=== PATIENT | male | born 1950 | race Asian ===

== ENCOUNTER 2016-10-18 12:25 | Inpatient (IN) | payer MEDICAID ==
[~2016-10-18] VITALS: Ht 167.6 cm; Wt 54.6 kg
[~2016-10-18 12:25] MED LIST: 0.9% SODIUM CHLORIDE 10 ML VIAL IVP ONE; FentaNYL CITRATE-PF 250 MCG/5 ML VIAL IVP ONE; GLYCOPYRROLATE 0.2 MG/ML VIAL IM ONE; HYDROmorphone 2 MG/ML SYRINGE IVP ONE; LIDOCAINE HCL/PF 2% 5 ML VIAL INJ ONE; MIDAZOLAM HCL 2 MG/2 ML VIAL IVP ONE; NEOSTIGMINE METHYLSULFATE 1 MG/ML 10 ML VIAL IVP ONE; PHENYLEPHRINE HCL 10 MG/ML VIAL IVP ONE; PROPOFOL 1% 20 ML VIAL IVP ONE; ROCURONIUM BROMIDE 10 MG/ML 5 ML VIAL IVP ONE; SUCCINYLCHOLINE CHLORIDE 20 MG/ML 10 ML VIAL IVP ONE
[2016-10-18] MEDS ORDERED: SIME125C PO (12:38)
[2016-10-18 12:41] LABS: GLUCOSE,POINT OF CARE 105 MG/DL (70-110)
[2016-10-18] MEDS ORDERED: ACETAMINOPHEN 1000 MG/ISO-OSM 100 ML IV ONE (13:00)
[2016-10-18] MEDS ORDERED: BARIUM SULFATE 0.1% SUSPENSION 450 ML BOTTLE PO ONE (13:00)
[2016-10-18] MEDS ORDERED: SODIUM CHLORIDE 0.9% 1,000 ML IV ONE ×3 (13:00→14:15)
[2016-10-18] MEDS ORDERED: ONDANSETRON HCL 4 MG/2 ML VIAL IVP ONE (13:00)
[2016-10-18 13:17] LABS: HEMATOCRIT 36.2 % (41-53); MEAN CORPUSCULAR HEMOGLOBIN 27.1 pg (26.0-34.0); MEAN CORPUSCULAR HGB CONC 33.2 G/dL (31.0-37.0); MEAN CORPUSCULAR VOLUME 82 fL (80-100); RED BLOOD CELL COUNT(AUTO) 4.43 MIL/uL (4.50-5.90); WHITE BLOOD COUNT (AUTO) 18.4 K/uL (4.5-11.0)
[2016-10-18 13:21] LABS: INR 1.3 (0.9-1.1); PROTHROMBIN TIME 13.2 SEC (9.4-11.6)
[2016-10-18 13:24] LABS: PLATELET COUNT (AUTO) 819 K/uL (150-450)
[2016-10-18 13:26] LABS: ANION GAP 12 mmol/L (8-16); CALCIUM, TOTAL 8.6 mg/dL (8.8-10.5); CARBON DIOXIDE 25 mmol/L (22-29); CHLORIDE 100 mmol/L (98-107); CREATININE 1.28 mg/dL (0.60-1.30); GLOMERULAR FILTR. RATE CALC 57 mL/min (>60); POTASSIUM 4.1 mmol/L (3.5-5.1); SODIUM SERUM 137 mmol/L (136-145); UREA NITROGEN, BLOOD 23 mg/dL (7-18)
[2016-10-18 13:31] LABS: ALANINE AMINOTRANSFERASE 47 U/L (12-78); ALBUMIN 2.8 g/dL (3.4-5.0); ASPARTATE AMINOTRANSFERASE 18 U/L (15-37); BAND NEUTROPHILS % (MANUAL) 26 % (1-5); BILIRUBIN,TOTAL 1.9 mg/dL (0.1-1.0); LYMPHOCYTES % (MANUAL) 1 % (22-44); TOTAL CELLS COUNTED 100; TOTAL PROTEIN, SERUM 7.6 g/dL (6.4-8.2)
[2016-10-18 13:44] LABS: APPEARANCE,URINE CLOUDY (CLEAR); GLUCOSE, URINE (UA) NEGATIVE (NEGATIVE); KETONES,URINE NEGATIVE (NEGATIVE); LEUKOCYTE ESTERASE ,URINE SMALL (NEGATIVE); OCCULT BLOOD,URINE TRACE (NEGATIVE); PH,URINE 5.5 (5.0-8.0); PROTEIN,URINE SEE CONFIRM (NEGATIVE)
[2016-10-18] MEDS ORDERED: PIPERACILLIN/TAZO 3.375 GM/D5W 50 ML IV ONE (13:45)
[2016-10-18] MEDS ORDERED: MetroNIDAZOLE 500 MG/NACL 100 ML IV ONE (13:45)
[2016-10-18 13:46] LABS: ADD UA MICROSCOPIC YES
[2016-10-18 13:50] LABS: SULFOSALICYLIC ACID,URINE 1+ (Negative)
[2016-10-18 13:50] LABS: LACTIC ACID 2.8 mmol/L (0.4-2.0)
[2016-10-18 13:51] LABS: RBC,URINE 0-2 /HPF (0-2); SQUAMOUS EPITHELIAL CELL,UR Few /LPF (None Seen)
[2016-10-18] MEDS ORDERED: SODIUM CHLORIDE 0.9% 100 ML ONE (13:56)
[2016-10-18] MEDS ORDERED: IOVERSOL 350 MG/ML 100 ML VIAL ONE (13:56)
[2016-10-18] MEDS ORDERED: MORPHINE SULFATE 4 MG/ML SYRINGE IVP PRN (14:15)
[2016-10-18] MEDS ORDERED: ONDANSETRON HCL 4 MG/2 ML VIAL IVP PRN ×2 (14:15→15:15)
[2016-10-18 15:05] LABS: REFLEX LACTIC ACID? YES YES
[2016-10-18] MEDS ORDERED: HEPARIN SODIUM 1000 UNITS/NS 500 ML ONE (15:10)
[2016-10-18] MEDS ORDERED: BISACODYL 10 MG RECTAL RECTAL SUPPOSITORY PR PRN (15:15)
[2016-10-18] MEDS ORDERED: ACETAMINOPHEN 325 MG TABLET PO PRN (15:15)
[2016-10-18] MEDS ORDERED: ALBUTEROL SULFATE 2.5 MG/0.5 ML NEB SOLUTION NEB PRN (15:15)
[2016-10-18 15:30] VITALS: BP 136/85
[2016-10-18] MEDS ORDERED: PIPERACILLIN/TAZO 3.375 GM/D5W 50 ML IV SCH (16:00)
[2016-10-18 16:28] LABS: ABG A-A DIFF O2 351.9 mmHg (10-20.0); ABG BASE EXCESS -6.8 mmol/L (-2.0-3.0); ABG HCO3 19.4 mmol/L (22.0-26.0); ABG OXYHEMOGLOBIN 98.4 % (94.0-100.0); ABG PCO2 36 mmHg (35-45); ABG PH 7.338 (7.35-7.450)
[2016-10-18] MEDS: SODIUM CHLORIDE 0.9% 1,000 ML IV SCH (16:47)
[2016-10-18 17:19] LABS: APPEARANCE,URINE CLEAR (CLEAR); GLUCOSE, URINE (UA) NEGATIVE (NEGATIVE); KETONES,URINE NEGATIVE (NEGATIVE); LEUKOCYTE ESTERASE ,URINE NEGATIVE (NEGATIVE); OCCULT BLOOD,URINE TRACE (NEGATIVE); PH,URINE 5.5 (5.0-8.0); PROTEIN,URINE NEGATIVE (NEGATIVE)
[2016-10-18 17:43] LABS: ADD UA MICROSCOPIC YES
[2016-10-18 17:45] VITALS: BP 127/73
[2016-10-18 17:46] LABS: SQUAMOUS EPITHELIAL CELL,UR Rare /LPF (None Seen)
[2016-10-18 17:55] VITALS: BP 108/59
[2016-10-18] MEDS ORDERED: NALOXONE HCL 0.4 MG/ML VIAL IVP PRN (18:15)
[2016-10-18] MEDS ORDERED: HYDROmorphone HCL 50 MG/NS/PF 100 ML IV PRN (18:15)
[2016-10-18 19:31] LABS: HEMATOCRIT 30.7 % (41-53); HEMOGLOBIN 10.1 g/dL (13.5-17.5); MEAN CORPUSCULAR HEMOGLOBIN 26.8 pg (26.0-34.0); MEAN CORPUSCULAR HGB CONC 32.7 G/dL (31.0-37.0); MEAN CORPUSCULAR VOLUME 82 fL (80-100); PLATELET COUNT (AUTO) 700 K/uL (150-450); RED BLOOD CELL COUNT(AUTO) 3.75 MIL/uL (4.50-5.90); RED CELL DISTRIBUTION WIDTH 16.6 % (11.5-14.5); WHITE BLOOD COUNT (AUTO) 3.6 K/uL (4.5-11.0)
[2016-10-18 19:39] LABS: ANION GAP 9 mmol/L (8-16); CALCIUM, TOTAL 6.6 mg/dL (8.8-10.5); CARBON DIOXIDE 22 mmol/L (22-29); CHLORIDE 107 mmol/L (98-107); CREATININE 0.94 mg/dL (0.60-1.30); GLOMERULAR FILTR. RATE CALC > 60 mL/min (>60); POTASSIUM 3.6 mmol/L (3.5-5.1); SODIUM SERUM 138 mmol/L (136-145); UREA NITROGEN, BLOOD 20 mg/dL (7-18)
[2016-10-18 19:44] LABS: ALANINE AMINOTRANSFERASE 34 U/L (12-78); ALBUMIN 2.1 g/dL (3.4-5.0); ASPARTATE AMINOTRANSFERASE 24 U/L (15-37); BILIRUBIN,TOTAL 1.8 mg/dL (0.1-1.0); TOTAL PROTEIN, SERUM 5.4 g/dL (6.4-8.2)
[2016-10-18] MEDS ORDERED: CALCIUM GLUCONATE 100 MG/ML 10 ML IVP ONE (19:45)
[2016-10-18] MEDS ORDERED: FUROSEMIDE 40 MG/4 ML VIAL ONE (19:47)
[2016-10-18 19:50] LABS: INR 1.4 (0.9-1.1); PROTHROMBIN TIME 14.5 SEC (9.4-11.6)
[2016-10-18] MEDS ORDERED: FUROSEMIDE 20 MG/2 ML VIAL IVP STA (19:52)
[2016-10-18 19:55] LABS: ABG A-A DIFF O2 193.7 mmHg (10-20.0); ABG BASE EXCESS -9.5 mmol/L (-2.0-3.0); ABG HCO3 16.8 mmol/L (22.0-26.0); ABG OXYHEMOGLOBIN 78.8 % (94.0-100.0); ABG PCO2 46 mmHg (35-45); ABG PH 7.219 (7.35-7.450); ALLEN TEST, BLOOD GAS POS; TEMPERATURE, FAHRENHEIT, BG 98.8 FAHREN (96.0-98.6)
[2016-10-18] MEDS: PIPERACILLIN/TAZO 3.375 GM/D5W 50 ML IV SCH (20:00)
[2016-10-18] MEDS ORDERED: MAGNESIUM SULFATE 4 GM/WATER 100 ML IV ONE (20:00)
[2016-10-18] MEDS ORDERED: SODIUM BICARBONATE [ADULT] 8.4% 50 MEQ/50 ML SYRINGE IVP ONE ×4 (20:00→20:22)
[2016-10-18] MEDS ORDERED: RINGERS SOLUTION,LACTATED 1,000 ML IV ONE (20:10)
[2016-10-18] MEDS ORDERED: 0.9% SODIUM CHLORIDE 5 ML NEB SOLUTION NEB ONE (20:50)
[2016-10-18] MEDS ORDERED: ALBUTEROL SULFATE 2.5 MG/0.5 ML NEB SOLUTION NEB ONE (20:50)
[2016-10-18] MEDS: PHYTONADIONE 10 MG in SODIUM CHLORIDE 0.9% 50 ML IV SCH (20:54)
[2016-10-18 20:58] LABS: BAND NEUTROPHILS % (MANUAL) 45 % (1-5); LYMPHOCYTES % (MANUAL) 23 % (22-44); METAMYELOCYTES % 2 % (0-0); TOTAL CELLS COUNTED 100
[2016-10-18] MEDS: PANTOPRAZOLE SODIUM 40 MG/VIAL IVP SCH (21:00)
[2016-10-18] MEDS ORDERED: 0.9% SODIUM CHLORIDE 10 ML SYRINGE IVP ONE (21:00)
[2016-10-18 21:09] LABS: ABG A-A DIFF O2 610.5 mmHg (10-20.0); ABG BASE EXCESS -2.8 mmol/L (-2.0-3.0); ABG HCO3 21.6 mmol/L (22.0-26.0); ABG OXYHEMOGLOBIN 82.1 % (94.0-100.0); ABG PCO2 51 mmHg (35-45); TEMPERATURE, FAHRENHEIT, BG 98.6 FAHREN (96.0-98.6)
[2016-10-18 21:10] LABS: ALLEN TEST, BLOOD GAS POS
[2016-10-18] MEDS ORDERED: PROPOFOL 1000 MG/ISO-OSM 100 ML IV ONE (21:21)
[2016-10-18 23:07] LABS: ABG A-A DIFF O2 601.4 mmHg (10-20.0); ABG BASE EXCESS -4.8 mmol/L (-2.0-3.0); ABG HCO3 20.7 mmol/L (22.0-26.0); ABG OXYHEMOGLOBIN 93.1 % (94.0-100.0); ABG PCO2 41 mmHg (35-45); ABG PH 7.329 (7.35-7.450); TEMPERATURE, FAHRENHEIT, BG 97.7 FAHREN (96.0-98.6)
[2016-10-18 23:08] LABS: ALLEN TEST, BLOOD GAS POS
[2016-10-19] VITALS (12 sets, daily range): BP systolic 61–122; BP diastolic 46–72
[2016-10-19] MEDS: PIPERACILLIN/TAZO 3.375 GM/D5W 50 ML IV SCH ×4 (04:54→20:08)
[2016-10-19] MEDS: SODIUM CHLORIDE 0.9% 1,000 ML IV SCH ×2 (04:55→14:33)
[2016-10-19] MEDS ORDERED: SODIUM CHLORIDE 0.9% 250 ML IV ONE (05:02)
[2016-10-19 05:41] LABS: HEMATOCRIT 33.9 % (41-53); HEMOGLOBIN 10.6 g/dL (13.5-17.5); MEAN CORPUSCULAR HEMOGLOBIN 26.1 pg (26.0-34.0); MEAN CORPUSCULAR HGB CONC 31.4 G/dL (31.0-37.0); MEAN CORPUSCULAR VOLUME 83 fL (80-100); PLATELET COUNT (AUTO) 562 K/uL (150-450); RED BLOOD CELL COUNT(AUTO) 4.07 MIL/uL (4.50-5.90); RED CELL DISTRIBUTION WIDTH 15.7 % (11.5-14.5); WHITE BLOOD COUNT (AUTO) 6.9 K/uL (4.5-11.0)
[2016-10-19 05:46] LABS: INR 1.4 (0.9-1.1); PROTHROMBIN TIME 14.3 SEC (9.4-11.6)
[2016-10-19 05:55] LABS: ALANINE AMINOTRANSFERASE 33 U/L (12-78); ANION GAP 8 mmol/L (8-16); ASPARTATE AMINOTRANSFERASE 23 U/L (15-37); BILIRUBIN,TOTAL 1.2 mg/dL (0.1-1.0); CALCIUM, TOTAL 7.4 mg/dL (8.8-10.5); CARBON DIOXIDE 28 mmol/L (22-29); CHLORIDE 105 mmol/L (98-107); CREATININE 1.17 mg/dL (0.60-1.30); GLOMERULAR FILTR. RATE CALC > 60 mL/min (>60); POTASSIUM 3.5 mmol/L (3.5-5.1); SODIUM SERUM 141 mmol/L (136-145); TOTAL PROTEIN, SERUM 5.8 g/dL (6.4-8.2); UREA NITROGEN, BLOOD 21 mg/dL (7-18)
[2016-10-19 07:43] LABS: BAND NEUTROPHILS % (MANUAL) 59 % (1-5); LYMPHOCYTES % (MANUAL) 17 % (22-44); RBC MORPHOLOGY COMMENT NORMAL RBC; TOTAL CELLS COUNTED 100
[2016-10-19] MEDS: PANTOPRAZOLE SODIUM 40 MG/VIAL IVP SCH ×2 (08:21→21:21)
[2016-10-19 08:25] LABS: ABG A-A DIFF O2 588.5 mmHg (10-20.0); ABG BASE EXCESS -0.1 mmol/L (-2.0-3.0); ABG HCO3 24.3 mmol/L (22.0-26.0); ABG OXYHEMOGLOBIN 95.4 % (94.0-100.0); ABG PCO2 43 mmHg (35-45); ABG PH 7.381 (7.35-7.450); TEMPERATURE, FAHRENHEIT, BG 98.1 FAHREN (96.0-98.6)
[2016-10-19] MEDS ORDERED: FUROSEMIDE 20 MG/2 ML VIAL IVP ONE ×2 (08:30→18:15)
[2016-10-19] MEDS ORDERED: SODIUM CHLORIDE 0.9% 100 ML ONE (09:59)
[2016-10-19] MEDS: ACETAMINOPHEN 650 MG/20.3 ML SOLUTION UDCUP NG PRN ×2 (11:36→20:09)
[2016-10-19] MEDS ORDERED: ALBUMIN HUMAN 25%-12.5GM/50ML 100 ML IV ONE (19:00)
[2016-10-19] MEDS ORDERED: ALBUMIN HUMAN 25%-25GM/100ML 100 ML IV ONE (19:00)
[2016-10-19 19:19] LABS: ABG BASE EXCESS -1.1 mmol/L (-2.0-3.0); ABG HCO3 24.1 mmol/L (22.0-26.0); ABG OXYHEMOGLOBIN 98.3 % (94.0-100.0); ABG PCO2 32 mmHg (35-45); ABG PH 7.467 (7.35-7.450); ALLEN TEST, BLOOD GAS POS
[2016-10-19 19:20] LABS: INSIPIRATORY PRESSURE, BG 32 cm H2O
[2016-10-19] MEDS ORDERED: PHENYLEPHRINE 200 MG/D5%-WATER 250 ML IV PRN (19:42)
[2016-10-19 20:54] LABS: CREATINE KINASE, TOTAL 69 U/L (39-308)
[2016-10-19] MEDS ORDERED: FUROSEMIDE 20 MG/2 ML VIAL IVP SCH (21:00)
[2016-10-19] MEDS: PHYTONADIONE 10 MG in SODIUM CHLORIDE 0.9% 50 ML IV SCH (21:18)
[2016-10-19] MEDS ORDERED: 0.9% SODIUM CHLORIDE 10 ML SYRINGE IVP PRN (21:45)
[2016-10-20] VITALS (14 sets, daily range): BP systolic 108–154; BP diastolic 50–79
[2016-10-20] MEDS ORDERED: SODIUM CHLORIDE 0.9% 250 ML IV ONE ×2 (01:54→22:42)
[2016-10-20] MEDS: RINGERS SOLUTION,LACTATED 1,000 ML IV SCH ×3 (02:53→21:16)
[2016-10-20] MEDS: PIPERACILLIN/TAZO 3.375 GM/D5W 50 ML IV SCH ×2 (02:54→08:00)
[2016-10-20] MEDS: ALBUMIN HUMAN 25%-12.5GM/50ML 50 ML IV SCH ×3 (03:00→19:35)
[2016-10-20 07:38] LABS: BASOPHILS % (AUTO) 0.2 % (0.0-2.0); EOSINOPHILS % (AUTO) 0.1 % (1.0-6.0); HEMATOCRIT 32.7 % (41-53); HEMOGLOBIN 10.7 g/dL (13.5-17.5); LYMPHOCYTES # (AUTO) 0.6 K/uL (1.0-4.8); MEAN CORPUSCULAR HGB CONC 32.7 G/dL (31.0-37.0); MEAN CORPUSCULAR VOLUME 83 fL (80-100); MONOCYTES # (AUTO) 5.8 K/uL (0.1-1.0); MONOCYTES % (AUTO) 27.6 % (2.0-9.0); NEUTROPHILS # (AUTO) 14.5 K/uL (1.8-7.7); NEUTROPHILS % (AUTO) 69.1 % (40.0-70.0); PLATELET COUNT (AUTO) 585 K/uL (150-450); RED BLOOD CELL COUNT(AUTO) 3.97 MIL/uL (4.50-5.90); RED CELL DISTRIBUTION WIDTH 16.1 % (11.5-14.5); WHITE BLOOD COUNT (AUTO) 21.1 K/uL (4.5-11.0)
[2016-10-20] MEDS: PANTOPRAZOLE SODIUM 40 MG/VIAL IVP SCH ×2 (08:00→20:48)
[2016-10-20 08:17] LABS: ALANINE AMINOTRANSFERASE 31 U/L (12-78); ALBUMIN 2.2 g/dL (3.4-5.0); ANION GAP 13 mmol/L (8-16); ASPARTATE AMINOTRANSFERASE 36 U/L (15-37); BILIRUBIN,TOTAL 2.1 mg/dL (0.1-1.0); CALCIUM, TOTAL 7.9 mg/dL (8.8-10.5); CARBON DIOXIDE 25 mmol/L (22-29); CHLORIDE 104 mmol/L (98-107); CREATINE KINASE MB 4.6 ng/mL (0-5); CREATINE KINASE, TOTAL 247 U/L (39-308); CREATININE 2.01 mg/dL (0.60-1.30); GLOMERULAR FILTR. RATE CALC 34 mL/min (>60); PHOSPHORUS 3.3 mg/dL (2.5-4.9); SODIUM SERUM 142 mmol/L (136-145); THYROID STIMULATING HORMONE 4.47 uIU/mL (0.36-3.74); TOTAL PROTEIN, SERUM 6.2 g/dL (6.4-8.2); UREA NITROGEN, BLOOD 33 mg/dL (7-18)
[2016-10-20 08:25] LABS: POTASSIUM 2.9 mmol/L (3.5-5.1)
[2016-10-20 08:32] LABS: B-TYPE NATRIURETIC PEPTIDE 1520 pg/mL (0-100)
[2016-10-20] MEDS ORDERED: POTASSIUM CHLORIDE 20 MEQ ER TABLET PO PRN (08:45)
[2016-10-20] MEDS: POTASSIUM CHL 10 MEQ/WATER 50 ML IV PRN ×4 (09:19→13:44)
[2016-10-20 10:12] LABS: ABG A-A DIFF O2 210.7 mmHg (10-20.0); ABG BASE EXCESS -1.6 mmol/L (-2.0-3.0); ABG HCO3 24.1 mmol/L (22.0-26.0); ABG OXYHEMOGLOBIN 98.9 % (94.0-100.0); ABG PCO2 24 mmHg (35-45); ABG PH 7.548 (7.35-7.450)
[2016-10-20 15:15] LABS: CREATINE KINASE MB 3.7 ng/mL (0-5); CREATINE KINASE, TOTAL 249 U/L (39-308)
[2016-10-20] MEDS: PIPERACILLIN SODIUM/TAZOBACTAM 2.25 GM in DEXTROSE 5%-WATER 50 ML IV SCH ×2 (15:39→22:49)
[2016-10-20] MEDS: ACETAMINOPHEN 650 MG/20.3 ML SOLUTION UDCUP NG PRN (15:49)
[2016-10-20] MEDS: PHYTONADIONE 10 MG in SODIUM CHLORIDE 0.9% 50 ML IV SCH (20:45)
[2016-10-21] VITALS (12 sets, daily range): BP systolic 116–170; BP diastolic 67–94
[2016-10-21] MEDS: MORPHINE SULFATE 2 MG/ML SYRINGE IVP PRN ×3 (02:19→11:57)
[2016-10-21] MEDS: ALBUMIN HUMAN 25%-12.5GM/50ML 50 ML IV SCH ×3 (03:42→17:46)
[2016-10-21] MEDS: PIPERACILLIN SODIUM/TAZOBACTAM 2.25 GM in DEXTROSE 5%-WATER 50 ML IV SCH ×4 (05:43→21:49)
[2016-10-21 08:22] LABS: HEMATOCRIT 29.3 % (41-53); HEMOGLOBIN 9.7 g/dL (13.5-17.5); MEAN CORPUSCULAR HEMOGLOBIN 27.2 pg (26.0-34.0); MEAN CORPUSCULAR VOLUME 83 fL (80-100); PLATELET COUNT (AUTO) 435 K/uL (150-450); RED BLOOD CELL COUNT(AUTO) 3.55 MIL/uL (4.50-5.90); RED CELL DISTRIBUTION WIDTH 16.3 % (11.5-14.5)
[2016-10-21] MEDS: PANTOPRAZOLE SODIUM 40 MG/VIAL IVP SCH ×2 (08:29→21:08)
[2016-10-21] MEDS: RINGERS SOLUTION,LACTATED 1,000 ML IV SCH ×2 (08:29→17:42)
[2016-10-21 08:34] LABS: CALCIUM, TOTAL 8.1 mg/dL (8.8-10.5); CREATININE 1.76 mg/dL (0.60-1.30); POTASSIUM 3.8 mmol/L (3.5-5.1)
[2016-10-21 08:41] LABS: BAND NEUTROPHILS % (MANUAL) 35 % (1-5); LYMPHOCYTES % (MANUAL) 12 % (22-44); RBC MORPHOLOGY COMMENT NORMAL RBC MORPH; TOTAL CELLS COUNTED 100
[2016-10-21] MEDS ORDERED: MORPHINE SULFATE 10 MG/ML SYRINGE IVP ONE (13:15)
[2016-10-21] MEDS: MORPHINE SULFATE 4 MG/ML SYRINGE IVP PRN ×2 (19:16→21:49)
[2016-10-22] VITALS (15 sets, daily range): BP systolic 62–156; BP diastolic 43–98
[2016-10-22] MEDS ORDERED: ATROPINE SULFATE 0.1 MG/ML 10 ML SYRINGE IVP ONE
[2016-10-22] MEDS ORDERED: SUCCINYLCHOLINE CHLORIDE 20 MG/ML 10 ML VIAL IVP ONE
[2016-10-22] MEDS: MORPHINE SULFATE 4 MG/ML SYRINGE IVP PRN ×6 (01:03→22:30)
[2016-10-22] MEDS: ALBUMIN HUMAN 25%-12.5GM/50ML 50 ML IV SCH ×3 (03:00→19:49)
[2016-10-22] MEDS: PIPERACILLIN SODIUM/TAZOBACTAM 2.25 GM in DEXTROSE 5%-WATER 50 ML IV SCH ×2 (03:53→10:24)
[2016-10-22] MEDS: RINGERS SOLUTION,LACTATED 1,000 ML IV SCH ×2 (03:53→12:14)
[2016-10-22] MEDS ORDERED: SODIUM CHLORIDE 0.9% 250 ML IV ONE (05:08)
[2016-10-22 06:43] LABS: EOSINOPHILS % (AUTO) 0.1 % (1.0-6.0); HEMATOCRIT 31.8 % (41-53); HEMOGLOBIN 10.1 g/dL (13.5-17.5); LYMPHOCYTES # (AUTO) 0.8 K/uL (1.0-4.8); LYMPHOCYTES % (AUTO) 3.8 % (22.0-44.0); MEAN CORPUSCULAR HEMOGLOBIN 26.8 pg (26.0-34.0); MEAN CORPUSCULAR HGB CONC 31.8 G/dL (31.0-37.0); MEAN CORPUSCULAR VOLUME 84 fL (80-100); MONOCYTES # (AUTO) 1.2 K/uL (0.1-1.0); MONOCYTES % (AUTO) 5.8 % (2.0-9.0); NEUTROPHILS # (AUTO) 18.6 K/uL (1.8-7.7); PLATELET COUNT (AUTO) 446 K/uL (150-450); RED BLOOD CELL COUNT(AUTO) 3.79 MIL/uL (4.50-5.90); RED CELL DISTRIBUTION WIDTH 16.7 % (11.5-14.5); WHITE BLOOD COUNT (AUTO) 20.6 K/uL (4.5-11.0)
[2016-10-22 06:52] LABS: CALCIUM, TOTAL 8.4 mg/dL (8.8-10.5); CREATININE 1.33 mg/dL (0.60-1.30); POTASSIUM 3.2 mmol/L (3.5-5.1)
[2016-10-22 07:01] LABS: NEUTROPHILS % (AUTO) 90.3 % (40.0-70.0)
[2016-10-22] MEDS: PANTOPRAZOLE SODIUM 40 MG/VIAL IVP SCH ×2 (08:33→21:26)
[2016-10-22] MEDS: POTASSIUM CHL 10 MEQ/WATER 50 ML IV PRN ×5 (08:34→22:54)
[2016-10-22 10:36] LABS: INR 1.1 (0.9-1.1); PROTHROMBIN TIME 11.3 SEC (9.4-11.6)
[2016-10-22 10:42] LABS: BAND NEUTROPHILS % (MANUAL) 29 % (1-5); LYMPHOCYTES % (MANUAL) 11 % (22-44); RBC MORPHOLOGY COMMENT NORMAL RBC MORPH; TOTAL CELLS COUNTED 100
[2016-10-22] MEDS ORDERED: VANCOMYCIN HCL 500 MG in DEXTROSE 5%-WATER 100 ML IV ONE (12:00)
[2016-10-22] MEDS ORDERED: 0.9% SODIUM CHLORIDE 5 ML NEB SOLUTION NEB ONE (13:45)
[2016-10-22 14:11] LABS: GLUCOSE,POINT OF CARE 106 MG/DL (70-110)
[2016-10-22 15:01] LABS: ABG A-A DIFF O2 601.9 mmHg (10-20.0); ABG BASE EXCESS -1.5 mmol/L (-2.0-3.0); ABG HCO3 23.5 mmol/L (22.0-26.0); ABG OXYHEMOGLOBIN 94.6 % (94.0-100.0); ABG PCO2 34 mmHg (35-45); ABG PH 7.436 (7.35-7.450); TEMPERATURE, FAHRENHEIT, BG 98.5 FAHREN (96.0-98.6)
[2016-10-22 15:03] LABS: ALLEN TEST, BLOOD GAS Positive
[2016-10-22] MEDS ORDERED: *CLINICAL-TOTAL PARENTERAL NUTRITION DOSING CLINICAL ONE ×2 (17:00)
[2016-10-22] MEDS: PIPERACILLIN/TAZO 3.375 GM/D5W 50 ML IV SCH ×2 (17:12→21:26)
[2016-10-22] MEDS: VANCOMYCIN HCL 750 MG in DEXTROSE 5%-WATER 150 ML IV SCH (17:41)
[2016-10-22] MEDS ORDERED: RAPID SEQUENCE KIT [RSI] 1 EACH KIT ONE ×2 (18:11)
[2016-10-22] MEDS ORDERED: NITROGLYCERIN 0.4 MG SUBLINGUAL TABLET #25 SL ONE (18:18)
[2016-10-22] MEDS ORDERED: NITROGLYCERIN 0.6 MG SUBLINGUAL TABLET #100 SL PRN ×2 (18:30)
[2016-10-22] MEDS ORDERED: FUROSEMIDE 40 MG/4 ML VIAL IVP ONE (18:30)
[2016-10-22] MEDS ORDERED: NITROGLYCERIN 0.4 MG SUBLINGUAL TABLET #25 SL PRN ×2 (18:30→19:00)
[2016-10-22 18:36] LABS: ABG A-A DIFF O2 608.1 mmHg (10-20.0); ABG BASE EXCESS -4.2 mmol/L (-2.0-3.0); ABG HCO3 20.9 mmol/L (22.0-26.0); ABG OXYHEMOGLOBIN 86.4 % (94.0-100.0); ABG PCO2 44 mmHg (35-45); ABG PH 7.319 (7.35-7.450); TEMPERATURE, FAHRENHEIT, BG 99.3 FAHREN (96.0-98.6)
[2016-10-22] MEDS ORDERED: SUCCINYLCHOLINE CHLORIDE 20 MG/ML 10 ML VIAL ONE (18:45)
[2016-10-22] MEDS ORDERED: MIDAZOLAM HCL 5 MG/ML VIAL ONE (18:45)
[2016-10-22] MEDS ORDERED: PROPOFOL 1000 MG/ISO-OSM 100 ML IV ONE (18:56)
[2016-10-22] MEDS ORDERED: MIDAZOLAM HCL 2 MG/2 ML VIAL IVP ONE (19:00)
[2016-10-22 19:17] LABS: ALLEN TEST, BLOOD GAS Positive; IPAP, BG 16 cm H2O
[2016-10-22 19:20] LABS: HEMATOCRIT 36.8 % (41-53); HEMOGLOBIN 11.9 g/dL (13.5-17.5); MEAN CORPUSCULAR HEMOGLOBIN 26.8 pg (26.0-34.0); MEAN CORPUSCULAR HGB CONC 32.4 G/dL (31.0-37.0); MEAN CORPUSCULAR VOLUME 83 fL (80-100); PLATELET COUNT (AUTO) 577 K/uL (150-450); RED BLOOD CELL COUNT(AUTO) 4.44 MIL/uL (4.50-5.90); RED CELL DISTRIBUTION WIDTH 16.9 % (11.5-14.5); WHITE BLOOD COUNT (AUTO) 20.9 K/uL (4.5-11.0)
[2016-10-22 19:27] LABS: ANION GAP 14 mmol/L (8-16); CALCIUM, TOTAL 8.4 mg/dL (8.8-10.5); CARBON DIOXIDE 27 mmol/L (22-29); CHLORIDE 108 mmol/L (98-107); CREATININE 1.27 mg/dL (0.60-1.30); GLOMERULAR FILTR. RATE CALC 57 mL/min (>60); POTASSIUM 3.2 mmol/L (3.5-5.1); SODIUM SERUM 149 mmol/L (136-145); UREA NITROGEN, BLOOD 28 mg/dL (7-18)
[2016-10-22 19:41] LABS: INR 1.1 (0.9-1.1); PROTHROMBIN TIME 11.4 SEC (9.4-11.6)
[2016-10-22 19:51] LABS: ALANINE AMINOTRANSFERASE 32 U/L (12-78); ALBUMIN 2.4 g/dL (3.4-5.0); ASPARTATE AMINOTRANSFERASE 40 U/L (15-37); BILIRUBIN,TOTAL 1.7 mg/dL (0.1-1.0); CREATINE KINASE MB 1.8 ng/mL (0-5); CREATINE KINASE, TOTAL 102 U/L (39-308); TOTAL PROTEIN, SERUM 6.3 g/dL (6.4-8.2)
[2016-10-22 19:59] LABS: ABG A-A DIFF O2 582.8 mmHg (10-20.0); ABG BASE EXCESS 1.4 mmol/L (-2.0-3.0); ABG OXYHEMOGLOBIN 96.8 % (94.0-100.0); ABG PCO2 35 mmHg (35-45); ABG PH 7.469 (7.35-7.450); TEMPERATURE, FAHRENHEIT, BG 98.6 FAHREN (96.0-98.6)
[2016-10-22 20:00] LABS: ALLEN TEST, BLOOD GAS Positive
[2016-10-22 20:14] LABS: BAND NEUTROPHILS % (MANUAL) 4 % (1-5); LYMPHOCYTES % (MANUAL) 11 % (22-44); REACTIVE LYMPHOCYTES 1 % (0-0); TOTAL CELLS COUNTED 100
[2016-10-22 20:16] LABS: RBC MORPHOLOGY COMMENT ABNORMAL RBC MORPH; WBC MORPHOLOGY TOXIC GRANULATION
[2016-10-22] MEDS ORDERED: POTASSIUM PHOS M BASIC D BASIC IV SCH ×7 (22:00)
[2016-10-22] MEDS ORDERED: TPN IV SCH ×7 (22:00)
[2016-10-22] MEDS ORDERED: POTASSIUM ACETATE IV SCH ×7 (22:00)
[2016-10-22] MEDS ORDERED: DEXTROSE 50%-WATER 25 GM/50 ML SYRINGE IVP PRN (22:00)
[2016-10-22] MEDS ORDERED: [UNRECOGNIZED DRUG - OTHER] IV SCH ×7 (22:00)
[2016-10-23] VITALS (12 sets, daily range): BP systolic 94–128; BP diastolic 45–64
[2016-10-23 00:02] LABS: GLUCOSE,POINT OF CARE 82 MG/DL (70-110)
[2016-10-23] MEDS: POTASSIUM CHL 10 MEQ/WATER 50 ML IV PRN ×7 (00:22→18:29)
[2016-10-23] MEDS: MORPHINE SULFATE 4 MG/ML SYRINGE IVP PRN ×3 (00:34→10:13)
[2016-10-23] MEDS: ALBUMIN HUMAN 25%-12.5GM/50ML 50 ML IV SCH ×3 (03:44→18:28)
[2016-10-23] MEDS: PROPOFOL 1000 MG/ISO-OSM 100 ML IV PRN ×4 (03:47→23:03)
[2016-10-23] MEDS: PIPERACILLIN/TAZO 3.375 GM/D5W 50 ML IV SCH ×4 (03:49→21:52)
[2016-10-23] MEDS: VANCOMYCIN HCL 750 MG in DEXTROSE 5%-WATER 150 ML IV SCH ×2 (05:28→18:28)
[2016-10-23 06:01] LABS: GLUCOSE COMMENT 1 Received Meds; GLUCOSE,POINT OF CARE 65 MG/DL (70-110)
[2016-10-23 06:23] LABS: ALBUMIN 2.3 g/dL (3.4-5.0); BILIRUBIN,TOTAL 1.7 mg/dL (0.1-1.0); CALCIUM, TOTAL 8.2 mg/dL (8.8-10.5); CREATININE 1.21 mg/dL (0.60-1.30); MAGNESIUM 1.8 mg/dL (1.80-2.40); PHOSPHORUS 2.5 mg/dL (2.5-4.9); POTASSIUM 3.2 mmol/L (3.5-5.1); TOTAL PROTEIN, SERUM 5.5 g/dL (6.4-8.2)
[2016-10-23 08:31] LABS: ABG A-A DIFF O2 406.6 mmHg (10-20.0); ABG BASE EXCESS 5.5 mmol/L (-2.0-3.0); ABG HCO3 29.1 mmol/L (22.0-26.0); ABG OXYHEMOGLOBIN 97.6 % (94.0-100.0); ABG PCO2 40 mmHg (35-45); ABG PH 7.481 (7.35-7.450); TEMPERATURE, FAHRENHEIT, BG 98.6 FAHREN (96.0-98.6)
[2016-10-23 08:36] LABS: ALLEN TEST, BLOOD GAS Positive
[2016-10-23] MEDS: PANTOPRAZOLE SODIUM 40 MG/VIAL IVP SCH ×2 (09:16→21:51)
[2016-10-23 11:09] LABS: BASOPHILS % (AUTO) 0.2 % (0.0-2.0); EOSINOPHILS % (AUTO) 0.9 % (1.0-6.0); HEMATOCRIT 32.6 % (41-53); HEMOGLOBIN 10.6 g/dL (13.5-17.5); LYMPHOCYTES # (AUTO) 1.1 K/uL (1.0-4.8); LYMPHOCYTES % (AUTO) 6.7 % (22.0-44.0); MEAN CORPUSCULAR HEMOGLOBIN 27.3 pg (26.0-34.0); MEAN CORPUSCULAR HGB CONC 32.7 G/dL (31.0-37.0); MEAN CORPUSCULAR VOLUME 83 fL (80-100); MONOCYTES # (AUTO) 0.2 K/uL (0.1-1.0); MONOCYTES % (AUTO) 1.2 % (2.0-9.0); NEUTROPHILS # (AUTO) 15.2 K/uL (1.8-7.7); PLATELET COUNT (AUTO) 367 K/uL (150-450); RED CELL DISTRIBUTION WIDTH 16.7 % (11.5-14.5); WHITE BLOOD COUNT (AUTO) 16.7 K/uL (4.5-11.0)
[2016-10-23] MEDS ORDERED: HEPARIN SODIUM 1000 UNITS/NS 500 ML ONE (11:59)
[2016-10-23 12:17] LABS: RBC MORPHOLOGY COMMENT ABNORMAL RBC MORPH
[2016-10-23] MEDS ORDERED: HEPARIN SODIUM,PORCINE 5,000 UNITS/ML VIAL IVP ONE (18:00)
[2016-10-23] MEDS ORDERED: HEPARIN SODIUM,PORCINE 5,000 UNITS/ML VIAL IVP PRN (18:00)
[2016-10-23 18:44] LABS: INR 1.2 (0.9-1.1); PROTHROMBIN TIME 12.3 SEC (9.4-11.6)
[2016-10-23] MEDS ORDERED: SODIUM CHLORIDE 0.9% 250 ML IV ONE (19:57)
[2016-10-23] MEDS: HEPARIN SODIUM 25000 UNITS/D5W 250 ML IV PRN (19:59)
[2016-10-23] MEDS ORDERED: TPN IV SCH ×9 (22:00)
[2016-10-23] MEDS ORDERED: POTASSIUM PHOS M BASIC D BASIC IV SCH ×9 (22:00)
[2016-10-23] MEDS ORDERED: [UNRECOGNIZED DRUG - OTHER] IV SCH ×9 (22:00)
[2016-10-23] MEDS ORDERED: POTASSIUM CHLORIDE IV SCH ×9 (22:00)
[2016-10-24] VITALS (8 sets, daily range): BP systolic 100–131; BP diastolic 43–79
[2016-10-24] MEDS: INSULIN REGULAR, HUMAN 100 UNITS/ML SQ PRN ×5 (00:54→21:32)
[2016-10-24] MEDS: ALBUMIN HUMAN 25%-12.5GM/50ML 50 ML IV SCH ×3 (02:32→18:06)
[2016-10-24] MEDS: HEPARIN SODIUM,PORCINE 5,000 UNITS/ML VIAL IVP PRN ×2 (03:18→10:07)
[2016-10-24] MEDS: PIPERACILLIN/TAZO 3.375 GM/D5W 50 ML IV SCH ×4 (03:19→21:29)
[2016-10-24] MEDS: PROPOFOL 1000 MG/ISO-OSM 100 ML IV PRN ×4 (03:58→22:05)
[2016-10-24 05:10] LABS: BASOPHILS # (AUTO) 0.03 K/uL (0.00-0.20); BASOPHILS % (AUTO) 0.2 % (0.0-2.0); EOSINOPHILS # (AUTO) 0.64 K/uL (0.00-0.70); EOSINOPHILS % (AUTO) 4.88 % (1.0-6.0); HEMATOCRIT 27.2 % (41-53); HEMOGLOBIN 8.7 g/dL (13.5-17.5); LYMPHOCYTES # (AUTO) 1.3 K/uL (1.0-4.8); LYMPHOCYTES % (AUTO) 9.8 % (22.0-44.0); MEAN CORPUSCULAR HEMOGLOBIN 26.7 pg (26.0-34.0); MEAN CORPUSCULAR HGB CONC 32.1 G/dL (31.0-37.0); MEAN CORPUSCULAR VOLUME 83 fL (80-100); MONOCYTES # (AUTO) 0.9 K/uL (0.1-1.0); MONOCYTES % (AUTO) 6.8 % (2.0-9.0); NEUTROPHILS # (AUTO) 10.3 K/uL (1.8-7.7); NEUTROPHILS % (AUTO) 78.3 % (40.0-70.0); PLATELET COUNT (AUTO) 342 K/uL (150-450); RED BLOOD CELL COUNT(AUTO) 3.28 MIL/uL (4.50-5.90); RED CELL DISTRIBUTION WIDTH 17.1 % (11.5-14.5); WHITE BLOOD COUNT (AUTO) 13.2 K/uL (4.5-11.0)
[2016-10-24 05:23] LABS: CALCIUM, TOTAL 7.8 mg/dL (8.8-10.5); CREATININE 1.39 mg/dL (0.60-1.30); PHOSPHORUS 2.8 mg/dL (2.5-4.9)
[2016-10-24 05:24] LABS: POTASSIUM 2.9 mmol/L (3.5-5.1)
[2016-10-24] MEDS: POTASSIUM CHL 10 MEQ/WATER 50 ML IV PRN ×9 (05:27→18:03)
[2016-10-24] MEDS: VANCOMYCIN HCL 750 MG in DEXTROSE 5%-WATER 150 ML IV SCH ×2 (05:55→18:05)
[2016-10-24 07:36] LABS: RBC MORPHOLOGY COMMENT ABNORMAL RBC MORPH
[2016-10-24] MEDS: PANTOPRAZOLE SODIUM 40 MG/VIAL IVP SCH ×2 (09:05→21:29)
[2016-10-24] MEDS: HEPARIN SODIUM 25000 UNITS/D5W 250 ML IV PRN ×2 (10:08→16:57)
[2016-10-24 11:16] LABS: GLUCOSE COMMENT 1 Received Meds; GLUCOSE,POINT OF CARE 166 MG/DL (70-110)
[2016-10-24 21:31] LABS: GLUCOSE,POINT OF CARE 83 MG/DL (70-110)
[2016-10-24 21:36] LABS: GLUCOSE,POINT OF CARE 148 MG/DL (70-110)
[2016-10-24 21:36] LABS: GLUCOSE,POINT OF CARE 84 MG/DL (70-110)
[2016-10-24 21:36] LABS: GLUCOSE,POINT OF CARE 112 MG/DL (70-110)
[2016-10-24 21:36] LABS: GLUCOSE COMMENT 1 Received Meds; GLUCOSE,POINT OF CARE 151 MG/DL (70-110)
[2016-10-24 21:36] LABS: GLUCOSE,POINT OF CARE 105 MG/DL (70-110)
[2016-10-24 21:37] LABS: GLUCOSE COMMENT 1 Received Meds; GLUCOSE,POINT OF CARE 159 MG/DL (70-110)
[2016-10-24 21:37] LABS: GLUCOSE COMMENT 1 Received Meds; GLUCOSE,POINT OF CARE 151 MG/DL (70-110)
[2016-10-24] MEDS ORDERED: [UNRECOGNIZED DRUG - OTHER] IV SCH ×9 (22:00)
[2016-10-24] MEDS ORDERED: POTASSIUM PHOS M BASIC D BASIC IV SCH ×9 (22:00)
[2016-10-24] MEDS ORDERED: POTASSIUM CHLORIDE IV SCH ×9 (22:00)
[2016-10-24] MEDS ORDERED: TPN IV SCH ×9 (22:00)
[2016-10-24] MEDS: MORPHINE SULFATE 4 MG/ML SYRINGE IVP PRN (22:25)
[2016-10-25] VITALS (11 sets, daily range): BP systolic 96–141; BP diastolic 52–82
[2016-10-25] MEDS: INSULIN REGULAR, HUMAN 100 UNITS/ML SQ PRN ×6 (00:28→23:43)
[2016-10-25 01:42] LABS: GLUCOSE,POINT OF CARE 136 MG/DL (70-110)
[2016-10-25 01:42] LABS: GLUCOSE COMMENT 1 Received Meds; GLUCOSE,POINT OF CARE 148 MG/DL (70-110)
[2016-10-25 01:42] LABS: GLUCOSE COMMENT 1 Received Meds; GLUCOSE,POINT OF CARE 156 MG/DL (70-110)
[2016-10-25] MEDS: ALBUMIN HUMAN 25%-12.5GM/50ML 50 ML IV SCH ×3 (02:43→18:27)
[2016-10-25] MEDS: POTASSIUM CHL 10 MEQ/WATER 50 ML IV PRN ×2 (03:00→03:42)
[2016-10-25] MEDS: PIPERACILLIN/TAZO 3.375 GM/D5W 50 ML IV SCH ×4 (03:41→22:02)
[2016-10-25] MEDS: PROPOFOL 1000 MG/ISO-OSM 100 ML IV PRN ×4 (03:42→22:34)
[2016-10-25] MEDS: VANCOMYCIN HCL 750 MG in DEXTROSE 5%-WATER 150 ML IV SCH ×2 (05:31→18:27)
[2016-10-25 05:32] LABS: BASOPHILS # (AUTO) 0.03 K/uL (0.00-0.20); BASOPHILS % (AUTO) 0.2 % (0.0-2.0); EOSINOPHILS # (AUTO) 0.79 K/uL (0.00-0.70); EOSINOPHILS % (AUTO) 6.37 % (1.0-6.0); HEMATOCRIT 26.7 % (41-53); HEMOGLOBIN 8.5 g/dL (13.5-17.5); LYMPHOCYTES # (AUTO) 1.4 K/uL (1.0-4.8); LYMPHOCYTES % (AUTO) 10.9 % (22.0-44.0); MEAN CORPUSCULAR HEMOGLOBIN 26.7 pg (26.0-34.0); MEAN CORPUSCULAR HGB CONC 31.8 G/dL (31.0-37.0); MEAN CORPUSCULAR VOLUME 84 fL (80-100); MONOCYTES # (AUTO) 0.9 K/uL (0.1-1.0); MONOCYTES % (AUTO) 7.3 % (2.0-9.0); NEUTROPHILS # (AUTO) 9.4 K/uL (1.8-7.7); NEUTROPHILS % (AUTO) 75.2 % (40.0-70.0); PLATELET COUNT (AUTO) 378 K/uL (150-450); RED BLOOD CELL COUNT(AUTO) 3.19 MIL/uL (4.50-5.90); RED CELL DISTRIBUTION WIDTH 17.4 % (11.5-14.5); WHITE BLOOD COUNT (AUTO) 12.5 K/uL (4.5-11.0)
[2016-10-25 06:00] LABS: ALANINE AMINOTRANSFERASE 16 U/L (12-78); ALBUMIN 2.3 g/dL (3.4-5.0); ANION GAP 6 mmol/L (8-16); ASPARTATE AMINOTRANSFERASE 19 U/L (15-37); BILIRUBIN,TOTAL 1.9 mg/dL (0.1-1.0); CALCIUM, TOTAL 8.2 mg/dL (8.8-10.5); CARBON DIOXIDE 30 mmol/L (22-29); CHLORIDE 110 mmol/L (98-107); CREATININE 1.02 mg/dL (0.60-1.30); GLOMERULAR FILTR. RATE CALC > 60 mL/min (>60); PHOSPHORUS 3.7 mg/dL (2.5-4.9); SODIUM SERUM 146 mmol/L (136-145); TOTAL PROTEIN, SERUM 5.5 g/dL (6.4-8.2); UREA NITROGEN, BLOOD 24 mg/dL (7-18)
[2016-10-25] MEDS ORDERED: SODIUM CHLORIDE 0.9% 250 ML IV ONE (08:29)
[2016-10-25] MEDS: MORPHINE SULFATE 4 MG/ML SYRINGE IVP PRN ×2 (08:35→22:51)
[2016-10-25] MEDS: PANTOPRAZOLE SODIUM 40 MG/VIAL IVP SCH ×2 (08:37→20:51)
[2016-10-25 10:05] LABS: RBC MORPHOLOGY COMMENT ABNORMAL RBC MORPH
[2016-10-25 11:58] LABS: ABG A-A DIFF O2 124.8 mmHg (10-20.0); ABG BASE EXCESS 2.3 mmol/L (-2.0-3.0); ABG HCO3 26.6 mmol/L (22.0-26.0); ABG OXYHEMOGLOBIN 97.7 % (94.0-100.0); ABG PCO2 35 mmHg (35-45); ABG PH 7.486 (7.35-7.450); TEMPERATURE, FAHRENHEIT, BG 98.1 FAHREN (96.0-98.6)
[2016-10-25 12:00] LABS: ALLEN TEST, BLOOD GAS Positive
[2016-10-25] MEDS ORDERED: DEXTROSE 10%-WATER 1,000 ML IV ONE (19:24)
[2016-10-25] MEDS ORDERED: DEXTROSE 10%-WATER 1,000 ML IV SCH (19:30)
[2016-10-25 20:25] LABS: GLUCOSE COMMENT 1 Received Meds; GLUCOSE,POINT OF CARE 140 MG/DL (70-110)
[2016-10-25 20:25] LABS: GLUCOSE,POINT OF CARE 121 MG/DL (70-110)
[2016-10-25 20:25] LABS: GLUCOSE COMMENT 1 Received Meds; GLUCOSE,POINT OF CARE 140 MG/DL (70-110)
[2016-10-25] MEDS ORDERED: TPN IV SCH ×9 (22:00)
[2016-10-25] MEDS ORDERED: [UNRECOGNIZED DRUG - OTHER] IV SCH ×9 (22:00)
[2016-10-25] MEDS ORDERED: POTASSIUM CHLORIDE IV SCH ×9 (22:00)
[2016-10-25] MEDS ORDERED: POTASSIUM PHOS M BASIC D BASIC IV SCH ×9 (22:00)
[2016-10-26] VITALS (11 sets, daily range): BP systolic 109–181; BP diastolic 58–97
[2016-10-26 01:06] LABS: GLUCOSE,POINT OF CARE 114 MG/DL (70-110)
[2016-10-26 02:27] LABS: GLUCOSE COMMENT 1 Received Meds; GLUCOSE,POINT OF CARE 146 MG/DL (70-110)
[2016-10-26 02:27] LABS: GLUCOSE COMMENT 1 Received Meds; GLUCOSE,POINT OF CARE 133 MG/DL (70-110)
[2016-10-26] MEDS: MORPHINE SULFATE 4 MG/ML SYRINGE IVP PRN ×3 (02:33→10:45)
[2016-10-26] MEDS: HEPARIN SODIUM 25000 UNITS/D5W 250 ML IV PRN ×2 (03:42→20:13)
[2016-10-26] MEDS: PROPOFOL 1000 MG/ISO-OSM 100 ML IV PRN ×3 (03:43→21:48)
[2016-10-26] MEDS: PIPERACILLIN/TAZO 3.375 GM/D5W 50 ML IV SCH ×4 (03:59→21:43)
[2016-10-26] MEDS: INSULIN REGULAR, HUMAN 100 UNITS/ML SQ PRN ×5 (04:30→20:28)
[2016-10-26 05:40] LABS: ANION GAP 8 mmol/L (8-16); CALCIUM, TOTAL 7.8 mg/dL (8.8-10.5); CARBON DIOXIDE 26 mmol/L (22-29); CHLORIDE 107 mmol/L (98-107); CREATININE 0.95 mg/dL (0.60-1.30); GLOMERULAR FILTR. RATE CALC > 60 mL/min (>60); PHOSPHORUS 3.5 mg/dL (2.5-4.9); POTASSIUM 3.9 mmol/L (3.5-5.1); SODIUM SERUM 141 mmol/L (136-145); UREA NITROGEN, BLOOD 19 mg/dL (7-18)
[2016-10-26] MEDS ORDERED: SODIUM CHLORIDE 0.9% 250 ML IV ONE ×2 (05:42→21:47)
[2016-10-26 06:11] LABS: GLUCOSE COMMENT 1 Received Meds; GLUCOSE,POINT OF CARE 141 MG/DL (70-110)
[2016-10-26] MEDS: HEPARIN SODIUM,PORCINE 5,000 UNITS/ML VIAL IVP PRN (07:04)
[2016-10-26] MEDS: VANCOMYCIN HCL 1 GM/D5% WATER 200 ML IV SCH ×2 (08:36→20:14)
[2016-10-26] MEDS: PANTOPRAZOLE SODIUM 40 MG/VIAL IVP SCH ×2 (08:36→20:32)
[2016-10-26 11:50] LABS: ABG A-A DIFF O2 140.7 mmHg (10-20.0); ABG BASE EXCESS -0.5 mmol/L (-2.0-3.0); ABG HCO3 24.2 mmol/L (22.0-26.0); ABG OXYHEMOGLOBIN 90.9 % (94.0-100.0); ABG PCO2 37 mmHg (35-45); ABG PH 7.427 (7.35-7.450); TEMPERATURE, FAHRENHEIT, BG 98.6 FAHREN (96.0-98.6)
[2016-10-26 11:51] LABS: ALLEN TEST, BLOOD GAS Positive
[2016-10-26] MEDS ORDERED: FUROSEMIDE 40 MG/4 ML VIAL IVP ONE (12:15)
[2016-10-26] MEDS: ALBUMIN HUMAN 25%-12.5GM/50ML 50 ML IV SCH ×2 (12:36→18:40)
[2016-10-26 14:33] LABS: BASOPHILS % (AUTO) 0.1 % (0.0-2.0); EOSINOPHILS % (AUTO) 3.5 % (1.0-6.0); HEMATOCRIT 29.5 % (41-53); HEMOGLOBIN 9.6 g/dL (13.5-17.5); LYMPHOCYTES # (AUTO) 1.1 K/uL (1.0-4.8); LYMPHOCYTES % (AUTO) 6.1 % (22.0-44.0); MEAN CORPUSCULAR HEMOGLOBIN 26.9 pg (26.0-34.0); MEAN CORPUSCULAR HGB CONC 32.5 G/dL (31.0-37.0); MEAN CORPUSCULAR VOLUME 83 fL (80-100); MONOCYTES # (AUTO) 1.1 K/uL (0.1-1.0); MONOCYTES % (AUTO) 6.3 % (2.0-9.0); NEUTROPHILS # (AUTO) 15.1 K/uL (1.8-7.7); PLATELET COUNT (AUTO) 445 K/uL (150-450); RED BLOOD CELL COUNT(AUTO) 3.57 MIL/uL (4.50-5.90); RED CELL DISTRIBUTION WIDTH 17.5 % (11.5-14.5)
[2016-10-26 14:44] LABS: RBC MORPHOLOGY COMMENT ABNORMAL RBC MORPH
[2016-10-26 17:51] LABS: GLUCOSE COMMENT 1 Received Meds; GLUCOSE,POINT OF CARE 134 MG/DL (70-110)
[2016-10-26 17:51] LABS: GLUCOSE COMMENT 1 Received Meds; GLUCOSE,POINT OF CARE 147 MG/DL (70-110)
[2016-10-26] MEDS: [UNRECOGNIZED DRUG - OTHER] IV SCH ×9 (21:05)
[2016-10-26] MEDS: POTASSIUM PHOS M BASIC D BASIC IV SCH ×9 (21:05)
[2016-10-26] MEDS: TPN IV SCH ×9 (21:05)
[2016-10-26] MEDS: POTASSIUM CHLORIDE IV SCH ×9 (21:05)
[2016-10-26 23:05] LABS: GLUCOSE,POINT OF CARE 104 MG/DL (70-110)
[2016-10-27] VITALS: BP 118/65
[2016-10-27] MEDS: INSULIN REGULAR, HUMAN 100 UNITS/ML SQ PRN ×7 (00:35→23:39)
[2016-10-27] MEDS: ALBUMIN HUMAN 25%-12.5GM/50ML 50 ML IV SCH ×3 (02:56→18:08)
[2016-10-27] MEDS: PROPOFOL 1000 MG/ISO-OSM 100 ML IV PRN ×4 (03:33→23:28)
[2016-10-27] MEDS: PIPERACILLIN/TAZO 3.375 GM/D5W 50 ML IV SCH ×4 (03:47→21:20)
[2016-10-27 04:00] VITALS: BP 118/62
[2016-10-27 04:01] LABS: GLUCOSE COMMENT 1 Received Meds; GLUCOSE,POINT OF CARE 122 MG/DL (70-110)
[2016-10-27] MEDS ORDERED: BARIUM SULFATE 0.1% SUSPENSION 450 ML BOTTLE ONE (05:28)
[2016-10-27 05:33] LABS: ANION GAP 10 mmol/L (8-16); CALCIUM, TOTAL 8.2 mg/dL (8.8-10.5); CARBON DIOXIDE 27 mmol/L (22-29); CHLORIDE 103 mmol/L (98-107); CREATININE 1.07 mg/dL (0.60-1.30); GLOMERULAR FILTR. RATE CALC > 60 mL/min (>60); PHOSPHORUS 3.8 mg/dL (2.5-4.9); POTASSIUM 3.5 mmol/L (3.5-5.1); SODIUM SERUM 140 mmol/L (136-145); UREA NITROGEN, BLOOD 20 mg/dL (7-18)
[2016-10-27] MEDS: POTASSIUM CHL 10 MEQ/WATER 50 ML IV PRN ×3 (05:58→06:39)
[2016-10-27 06:40] LABS: BASOPHILS % (AUTO) 0.1 % (0.0-2.0); EOSINOPHILS % (AUTO) 4.5 % (1.0-6.0); HEMATOCRIT 28.5 % (41-53); LYMPHOCYTES # (AUTO) 1.3 K/uL (1.0-4.8); LYMPHOCYTES % (AUTO) 7.3 % (22.0-44.0); MEAN CORPUSCULAR HEMOGLOBIN 26.7 pg (26.0-34.0); MEAN CORPUSCULAR HGB CONC 31.7 G/dL (31.0-37.0); MEAN CORPUSCULAR VOLUME 84 fL (80-100); MONOCYTES # (AUTO) 1.3 K/uL (0.1-1.0); MONOCYTES % (AUTO) 7.3 % (2.0-9.0); NEUTROPHILS % (AUTO) 80.8 % (40.0-70.0); PLATELET COUNT (AUTO) 435 K/uL (150-450); RED BLOOD CELL COUNT(AUTO) 3.38 MIL/uL (4.50-5.90); RED CELL DISTRIBUTION WIDTH 17.7 % (11.5-14.5); WHITE BLOOD COUNT (AUTO) 18.5 K/uL (4.5-11.0)
[2016-10-27 06:47] LABS: INR 1.1 (0.9-1.1)
[2016-10-27 08:00] VITALS: BP 117/55
[2016-10-27] MEDS ORDERED: SODIUM CHLORIDE 0.9% 250 ML IV ONE (08:00)
[2016-10-27 08:12] LABS: GLUCOSE COMMENT 1 Received Meds; GLUCOSE,POINT OF CARE 154 MG/DL (70-110)
[2016-10-27 08:12] LABS: GLUCOSE COMMENT 1 Received Meds; GLUCOSE,POINT OF CARE 148 MG/DL (70-110)
[2016-10-27] MEDS: VANCOMYCIN HCL 1 GM/D5% WATER 200 ML IV SCH ×2 (08:36→19:36)
[2016-10-27] MEDS: PANTOPRAZOLE SODIUM 40 MG/VIAL IVP SCH ×2 (08:36→20:06)
[2016-10-27] MEDS: HEPARIN SODIUM 25000 UNITS/D5W 250 ML IV PRN ×2 (08:57→22:53)
[2016-10-27] MEDS ORDERED: MAGNESIUM SULFATE 2 GM in DEXTROSE 5%-WATER 50 ML IV ONE (12:00)
[2016-10-27 12:12] VITALS: BP 131/66
[2016-10-27 16:00] VITALS: BP 117/57
[2016-10-27] MEDS ORDERED: BISACODYL 10 MG RECTAL RECTAL SUPPOSITORY PR PRN (16:30)
[2016-10-27 20:00] VITALS: BP 113/52
[2016-10-27] MEDS ORDERED: DEXTROSE 10%-WATER 1,000 ML IV ONE (20:03)
[2016-10-27] MEDS: POTASSIUM PHOS M BASIC D BASIC IV SCH ×9 (21:34)
[2016-10-27] MEDS: TPN IV SCH ×9 (21:34)
[2016-10-27] MEDS: POTASSIUM CHLORIDE IV SCH ×9 (21:34)
[2016-10-27] MEDS: [UNRECOGNIZED DRUG - OTHER] IV SCH ×9 (21:34)
[2016-10-28] VITALS: BP 115/68
[2016-10-28] MEDS ORDERED: SODIUM CHLORIDE 0.9% 250 ML IV ONE ×2 (00:38→14:45)
[2016-10-28] MEDS: ALBUMIN HUMAN 25%-12.5GM/50ML 50 ML IV SCH ×3 (03:04→17:52)
[2016-10-28] MEDS: PIPERACILLIN/TAZO 3.375 GM/D5W 50 ML IV SCH ×4 (03:11→21:44)
[2016-10-28] MEDS: PROPOFOL 1000 MG/ISO-OSM 100 ML IV PRN ×3 (03:53→23:06)
[2016-10-28 04:00] VITALS: BP 128/63
[2016-10-28] MEDS: INSULIN REGULAR, HUMAN 100 UNITS/ML SQ PRN ×3 (04:30→21:22)
[2016-10-28 05:21] LABS: ANION GAP 12 mmol/L (8-16); CALCIUM, TOTAL 8.3 mg/dL (8.8-10.5); CARBON DIOXIDE 24 mmol/L (22-29); CHLORIDE 105 mmol/L (98-107); CREATININE 1.04 mg/dL (0.60-1.30); GLOMERULAR FILTR. RATE CALC > 60 mL/min (>60); PHOSPHORUS 3.8 mg/dL (2.5-4.9); SODIUM SERUM 141 mmol/L (136-145); UREA NITROGEN, BLOOD 22 mg/dL (7-18)
[2016-10-28 06:19] LABS: BASOPHILS # (AUTO) 0.02 K/uL (0.00-0.20); BASOPHILS % (AUTO) 0.1 % (0.0-2.0); EOSINOPHILS % (AUTO) 3.62 % (1.0-6.0); HEMATOCRIT 25.3 % (41-53); HEMOGLOBIN 8.3 g/dL (13.5-17.5); LYMPHOCYTES # (AUTO) 1.2 K/uL (1.0-4.8); LYMPHOCYTES % (AUTO) 7.2 % (22.0-44.0); MEAN CORPUSCULAR HEMOGLOBIN 27.3 pg (26.0-34.0); MEAN CORPUSCULAR HGB CONC 32.7 G/dL (31.0-37.0); MEAN CORPUSCULAR VOLUME 83 fL (80-100); MONOCYTES # (AUTO) 1.4 K/uL (0.1-1.0); MONOCYTES % (AUTO) 8.3 % (2.0-9.0); NEUTROPHILS # (AUTO) 13.4 K/uL (1.8-7.7); NEUTROPHILS % (AUTO) 80.8 % (40.0-70.0); PLATELET COUNT (AUTO) 465 K/uL (150-450); RED BLOOD CELL COUNT(AUTO) 3.04 MIL/uL (4.50-5.90); RED CELL DISTRIBUTION WIDTH 18.5 % (11.5-14.5); WHITE BLOOD COUNT (AUTO) 16.6 K/uL (4.5-11.0)
[2016-10-28 07:49] LABS: ABG A-A DIFF O2 79.8 mmHg (10-20.0); ABG BASE EXCESS -4.1 mmol/L (-2.0-3.0); ABG HCO3 21.8 mmol/L (22.0-26.0); ABG OXYHEMOGLOBIN 96.4 % (94.0-100.0); ABG PCO2 31 mmHg (35-45); ABG PH 7.429 (7.35-7.450); TEMPERATURE, FAHRENHEIT, BG 97.8 FAHREN (96.0-98.6)
[2016-10-28 07:50] LABS: ALLEN TEST, BLOOD GAS Positive
[2016-10-28 08:00] VITALS: BP 112/56
[2016-10-28] MEDS: VANCOMYCIN HCL 1 GM/D5% WATER 200 ML IV SCH ×2 (08:45→21:23)
[2016-10-28] MEDS: PANTOPRAZOLE SODIUM 40 MG/VIAL IVP SCH ×2 (08:45→21:23)
[2016-10-28 10:27] LABS: RBC MORPHOLOGY COMMENT ABNORMAL RBC MORPH
[2016-10-28 12:00] VITALS: BP 122/78
[2016-10-28] MEDS: HALOPERIDOL LACTATE 5 MG/ML VIAL IVP PRN ×2 (12:01→19:03)
[2016-10-28] MEDS: ACETAMINOPHEN 650 MG/20.3 ML SOLUTION UDCUP NG PRN (12:01)
[2016-10-28] MEDS: HEPARIN SODIUM 25000 UNITS/D5W 250 ML IV PRN (14:30)
[2016-10-28 16:00] VITALS: BP 137/57
[2016-10-28] MEDS ORDERED: INFLUENZA VIRUS VACCINE QVS 2016-17 (3YR+)/PF 60 MCG/0.5 ML SYRINGE IM ONE (17:15)
[2016-10-28 19:30] LABS: ABG A-A DIFF O2 74.8 mmHg (10-20.0); ABG HCO3 23.2 mmol/L (22.0-26.0); ABG OXYHEMOGLOBIN 97.1 % (94.0-100.0); ABG PCO2 33 mmHg (35-45); ABG PH 7.446 (7.35-7.450); TEMPERATURE, FAHRENHEIT, BG 98.6 FAHREN (96.0-98.6)
[2016-10-28 19:31] LABS: ALLEN TEST, BLOOD GAS Positive
[2016-10-28 20:00] VITALS: BP 160/75
[2016-10-28] MEDS: [UNRECOGNIZED DRUG - OTHER] IV SCH ×9 (21:43)
[2016-10-28] MEDS: POTASSIUM PHOS M BASIC D BASIC IV SCH ×9 (21:43)
[2016-10-28] MEDS: POTASSIUM CHLORIDE IV SCH ×9 (21:43)
[2016-10-28] MEDS: TPN IV SCH ×9 (21:43)
[2016-10-29] VITALS: BP 165/74
[2016-10-29] MEDS: INSULIN REGULAR, HUMAN 100 UNITS/ML SQ PRN ×4 (01:04→16:30)
[2016-10-29 04:00] VITALS: BP 95/47
[2016-10-29] MEDS: ALBUMIN HUMAN 25%-12.5GM/50ML 50 ML IV SCH ×3 (05:15→18:35)
[2016-10-29] MEDS: PIPERACILLIN/TAZO 3.375 GM/D5W 50 ML IV SCH ×4 (05:15→22:51)
[2016-10-29] MEDS: PROPOFOL 1000 MG/ISO-OSM 100 ML IV PRN ×3 (05:16→20:08)
[2016-10-29 05:55] LABS: ANION GAP 8 mmol/L (8-16); CALCIUM, TOTAL 8.2 mg/dL (8.8-10.5); CARBON DIOXIDE 24 mmol/L (22-29); CHLORIDE 106 mmol/L (98-107); GLOMERULAR FILTR. RATE CALC > 60 mL/min (>60); PHOSPHORUS 3.6 mg/dL (2.5-4.9); POTASSIUM 3.7 mmol/L (3.5-5.1); SODIUM SERUM 138 mmol/L (136-145); UREA NITROGEN, BLOOD 19 mg/dL (7-18)
[2016-10-29] MEDS: HEPARIN SODIUM 25000 UNITS/D5W 250 ML IV PRN (06:07)
[2016-10-29] MEDS: HEPARIN SODIUM,PORCINE 5,000 UNITS/ML VIAL IVP PRN (07:10)
[2016-10-29] MEDS: VANCOMYCIN HCL 1 GM/D5% WATER 200 ML IV SCH ×2 (07:57→20:07)
[2016-10-29] MEDS: PANTOPRAZOLE SODIUM 40 MG/VIAL IVP SCH ×2 (07:59→20:07)
[2016-10-29 08:00] VITALS: BP 108/57
[2016-10-29] MEDS ORDERED: SODIUM CHLORIDE 0.9% 500 ML IV ONE (11:51)
[2016-10-29 12:00] VITALS: BP 129/58
[2016-10-29 16:00] VITALS: BP 138/61
[2016-10-29] MEDS: ACETAMINOPHEN 650 MG/20.3 ML SOLUTION UDCUP NG PRN (18:34)
[2016-10-29 20:00] VITALS: BP_SYST 127; BP_SYST 138; BP_DIAS 53; BP_DIAS 71
[2016-10-29] MEDS ORDERED: POTASSIUM CHLORIDE IV SCH ×9 (22:00)
[2016-10-29] MEDS ORDERED: TPN IV SCH ×9 (22:00)
[2016-10-29] MEDS ORDERED: POTASSIUM PHOS M BASIC D BASIC IV SCH ×9 (22:00)
[2016-10-29] MEDS ORDERED: [UNRECOGNIZED DRUG - OTHER] IV SCH ×9 (22:00)
[2016-10-30] VITALS: BP 129/68
[2016-10-30] MEDS: HEPARIN SODIUM 25000 UNITS/D5W 250 ML IV PRN ×2 (00:11→16:14)
[2016-10-30] MEDS: ALBUMIN HUMAN 25%-12.5GM/50ML 50 ML IV SCH ×3 (02:46→19:00)
[2016-10-30] MEDS: PROPOFOL 1000 MG/ISO-OSM 100 ML IV PRN ×2 (02:47→09:09)
[2016-10-30] MEDS: PIPERACILLIN/TAZO 3.375 GM/D5W 50 ML IV SCH ×4 (03:29→22:16)
[2016-10-30 04:00] VITALS: BP 122/65
[2016-10-30 05:23] LABS: BASOPHILS # (AUTO) 0.01 K/uL (0.00-0.20); BASOPHILS % (AUTO) 0.1 % (0.0-2.0); HEMATOCRIT 26.3 % (41-53); HEMOGLOBIN 8.4 g/dL (13.5-17.5); LYMPHOCYTES # (AUTO) 1.1 K/uL (1.0-4.8); LYMPHOCYTES % (AUTO) 8.6 % (22.0-44.0); MEAN CORPUSCULAR HEMOGLOBIN 26.8 pg (26.0-34.0); MEAN CORPUSCULAR VOLUME 84 fL (80-100); MONOCYTES # (AUTO) 1.5 K/uL (0.1-1.0); MONOCYTES % (AUTO) 11.4 % (2.0-9.0); NEUTROPHILS # (AUTO) 10.2 K/uL (1.8-7.7); PLATELET COUNT (AUTO) 631 K/uL (150-450); RED BLOOD CELL COUNT(AUTO) 3.14 MIL/uL (4.50-5.90); RED CELL DISTRIBUTION WIDTH 18.8 % (11.5-14.5); WHITE BLOOD COUNT (AUTO) 13.3 K/uL (4.5-11.0)
[2016-10-30 05:54] LABS: ANION GAP 10 mmol/L (8-16); CALCIUM, TOTAL 8.4 mg/dL (8.8-10.5); CARBON DIOXIDE 23 mmol/L (22-29); CHLORIDE 106 mmol/L (98-107); GLOMERULAR FILTR. RATE CALC > 60 mL/min (>60); POTASSIUM 4.1 mmol/L (3.5-5.1); SODIUM SERUM 139 mmol/L (136-145); UREA NITROGEN, BLOOD 20 mg/dL (7-18)
[2016-10-30 07:45] LABS: RBC MORPHOLOGY COMMENT ABNORMAL RBC MORPH
[2016-10-30 07:49] LABS: ABG A-A DIFF O2 42.9 mmHg (10-20.0); ABG HCO3 20.9 mmol/L (22.0-26.0); ABG OXYHEMOGLOBIN 97.8 % (94.0-100.0); ABG PCO2 29 mmHg (35-45); ABG PH 7.436 (7.35-7.450); TEMPERATURE, FAHRENHEIT, BG 98.6 FAHREN (96.0-98.6)
[2016-10-30 07:50] LABS: ALLEN TEST, BLOOD GAS Positive
[2016-10-30 08:00] VITALS: BP 103/59
[2016-10-30] MEDS: PANTOPRAZOLE SODIUM 40 MG/VIAL IVP SCH ×2 (09:11→21:10)
[2016-10-30] MEDS: INSULIN REGULAR, HUMAN 100 UNITS/ML SQ PRN (09:12)
[2016-10-30] MEDS: HALOPERIDOL LACTATE 5 MG/ML VIAL IVP PRN ×2 (11:42→17:57)
[2016-10-30 12:00] VITALS: BP 117/60
[2016-10-30] MEDS ORDERED: SODIUM CHLORIDE 0.9% 250 ML IV ONE ×2 (14:20→16:08)
[2016-10-30 16:00] VITALS: BP 149/66
[2016-10-30 17:30] LABS: ABG A-A DIFF O2 74.2 mmHg (10-20.0); ABG BASE EXCESS -3.2 mmol/L (-2.0-3.0); ABG HCO3 22.1 mmol/L (22.0-26.0); ABG OXYHEMOGLOBIN 96.3 % (94.0-100.0); ABG PCO2 36 mmHg (35-45); ABG PH 7.399 (7.35-7.450); TEMPERATURE, FAHRENHEIT, BG 98.6 FAHREN (96.0-98.6)
[2016-10-30 17:31] LABS: ALLEN TEST, BLOOD GAS Positive
[2016-10-30] MEDS: VANCOMYCIN HCL 500 MG in DEXTROSE 5%-WATER 100 ML IV SCH (17:58)
[2016-10-30 18:11] LABS: GLUCOSE COMMENT 1 Received Meds; GLUCOSE,POINT OF CARE 147 MG/DL (70-110)
[2016-10-30 18:17] LABS: GLUCOSE COMMENT 1 Received Meds; GLUCOSE,POINT OF CARE 141 MG/DL (70-110)
[2016-10-30 18:17] LABS: GLUCOSE COMMENT 1 Received Meds; GLUCOSE,POINT OF CARE 126 MG/DL (70-110)
[2016-10-30 18:17] LABS: GLUCOSE COMMENT 1 Received Meds; GLUCOSE,POINT OF CARE 136 MG/DL (70-110)
[2016-10-30 18:17] LABS: GLUCOSE COMMENT 1 Received Meds; GLUCOSE,POINT OF CARE 120 MG/DL (70-110)
[2016-10-30 18:17] LABS: GLUCOSE,POINT OF CARE 129 MG/DL (70-110)
[2016-10-30 18:17] LABS: GLUCOSE,POINT OF CARE 109 MG/DL (70-110)
[2016-10-30 18:17] LABS: GLUCOSE COMMENT 1 Received Meds; GLUCOSE,POINT OF CARE 154 MG/DL (70-110)
[2016-10-30 18:17] LABS: GLUCOSE COMMENT 1 Received Meds; GLUCOSE,POINT OF CARE 122 MG/DL (70-110)
[2016-10-30 18:17] LABS: GLUCOSE,POINT OF CARE 113 MG/DL (70-110)
[2016-10-30 18:17] LABS: GLUCOSE,POINT OF CARE 140 MG/DL (70-110)
[2016-10-30 18:17] LABS: GLUCOSE COMMENT 1 Received Meds; GLUCOSE,POINT OF CARE 144 MG/DL (70-110)
[2016-10-30 18:17] LABS: GLUCOSE,POINT OF CARE 132 MG/DL (70-110)
[2016-10-30 18:17] LABS: GLUCOSE COMMENT 1 Received Meds; GLUCOSE,POINT OF CARE 125 MG/DL (70-110)
[2016-10-30 18:17] LABS: GLUCOSE COMMENT 1 Received Meds; GLUCOSE,POINT OF CARE 125 MG/DL (70-110)
[2016-10-30 18:18] LABS: GLUCOSE,POINT OF CARE 121 MG/DL (70-110)
[2016-10-30 18:20] LABS: GLUCOSE,POINT OF CARE 127 MG/DL (70-110)
[2016-10-30 18:20] LABS: GLUCOSE,POINT OF CARE 137 MG/DL (70-110)
[2016-10-30 18:21] LABS: GLUCOSE COMMENT 1 Received Meds; GLUCOSE,POINT OF CARE 149 MG/DL (70-110)
[2016-10-30 18:21] LABS: GLUCOSE,POINT OF CARE 101 MG/DL (70-110)
[2016-10-30 18:21] LABS: GLUCOSE,POINT OF CARE 112 MG/DL (70-110)
[2016-10-30 20:00] VITALS: BP 121/73
[2016-10-30 20:00] LABS: ABG A-A DIFF O2 95.9 mmHg (10-20.0); ABG BASE EXCESS -3.8 mmol/L (-2.0-3.0); ABG HCO3 21.8 mmol/L (22.0-26.0); ABG OXYHEMOGLOBIN 96.5 % (94.0-100.0); ABG PCO2 31 mmHg (35-45); ABG PH 7.437 (7.35-7.450); ALLEN TEST, BLOOD GAS POSITIVE; TEMPERATURE, FAHRENHEIT, BG 98.6 FAHREN (96.0-98.6)
[2016-10-30] MEDS ORDERED: [UNRECOGNIZED DRUG - OTHER] IV SCH ×9 (22:00)
[2016-10-30] MEDS ORDERED: TPN IV SCH ×9 (22:00)
[2016-10-30] MEDS ORDERED: SODIUM CHLORIDE IV SCH ×9 (22:00)
[2016-10-30] MEDS ORDERED: POTASSIUM PHOS M BASIC D BASIC IV SCH ×9 (22:00)
[2016-10-31] VITALS (8 sets, daily range): BP systolic 96–130; BP diastolic 52–76
[2016-10-31] MEDS: ALBUMIN HUMAN 25%-12.5GM/50ML 50 ML IV SCH ×3 (03:18→18:03)
[2016-10-31] MEDS: PIPERACILLIN/TAZO 3.375 GM/D5W 50 ML IV SCH ×4 (03:59→22:17)
[2016-10-31] MEDS: MORPHINE SULFATE 4 MG/ML SYRINGE IVP PRN ×2 (04:00→18:03)
[2016-10-31] MEDS ORDERED: SODIUM CHLORIDE 0.9% 250 ML IV ONE ×2 (05:30→18:01)
[2016-10-31 05:34] LABS: ANION GAP 12 mmol/L (8-16); CALCIUM, TOTAL 8.6 mg/dL (8.8-10.5); CARBON DIOXIDE 23 mmol/L (22-29); CHLORIDE 102 mmol/L (98-107); CREATININE 0.93 mg/dL (0.60-1.30); GLOMERULAR FILTR. RATE CALC > 60 mL/min (>60); PHOSPHORUS 4.2 mg/dL (2.5-4.9); POTASSIUM 3.8 mmol/L (3.5-5.1); SODIUM SERUM 137 mmol/L (136-145); UREA NITROGEN, BLOOD 18 mg/dL (7-18)
[2016-10-31] MEDS: VANCOMYCIN HCL 500 MG in DEXTROSE 5%-WATER 100 ML IV SCH ×2 (05:35→18:03)
[2016-10-31] MEDS: PANTOPRAZOLE SODIUM 40 MG/VIAL IVP SCH ×2 (08:30→21:01)
[2016-10-31] MEDS: HEPARIN SODIUM 25000 UNITS/D5W 250 ML IV PRN (08:30)
[2016-10-31] MEDS: MetroNIDAZOLE 500 MG/NACL 100 ML IV SCH ×2 (11:00→18:04)
[2016-10-31] MEDS: INSULIN REGULAR, HUMAN 100 UNITS/ML SQ PRN (16:43)
[2016-10-31 21:47] LABS: GLUCOSE COMMENT 1 Received Meds; GLUCOSE,POINT OF CARE 135 MG/DL (70-110)
[2016-10-31] MEDS ORDERED: TPN IV SCH ×9 (22:00)
[2016-10-31] MEDS ORDERED: [UNRECOGNIZED DRUG - OTHER] IV SCH ×9 (22:00)
[2016-10-31] MEDS ORDERED: SODIUM CHLORIDE IV SCH ×9 (22:00)
[2016-10-31] MEDS ORDERED: SODIUM PHOS M BASIC D BASIC IV SCH ×9 (22:00)
[2016-11-01] VITALS (8 sets, daily range): BP systolic 106–125; BP diastolic 57–71
[2016-11-01] MEDS: ALBUMIN HUMAN 25%-12.5GM/50ML 50 ML IV SCH ×3 (03:03→18:23)
[2016-11-01] MEDS: MetroNIDAZOLE 500 MG/NACL 100 ML IV SCH ×3 (03:03→18:33)
[2016-11-01] MEDS: MORPHINE SULFATE 4 MG/ML SYRINGE IVP PRN ×2 (03:03→23:06)
[2016-11-01] MEDS: PIPERACILLIN/TAZO 3.375 GM/D5W 50 ML IV SCH ×4 (04:28→21:50)
[2016-11-01] MEDS: VANCOMYCIN HCL 500 MG in DEXTROSE 5%-WATER 100 ML IV SCH ×2 (05:32→18:11)
[2016-11-01 05:56] LABS: BASOPHILS % (AUTO) 0.5 % (0.0-2.0); EOSINOPHILS % (AUTO) 3.1 % (1.0-6.0); HEMATOCRIT 27.9 % (41-53); HEMOGLOBIN 8.9 g/dL (13.5-17.5); LYMPHOCYTES # (AUTO) 1.3 K/uL (1.0-4.8); MEAN CORPUSCULAR HEMOGLOBIN 26.6 pg (26.0-34.0); MEAN CORPUSCULAR HGB CONC 31.7 G/dL (31.0-37.0); MEAN CORPUSCULAR VOLUME 84 fL (80-100); MONOCYTES # (AUTO) 1.9 K/uL (0.1-1.0); MONOCYTES % (AUTO) 13.2 % (2.0-9.0); NEUTROPHILS # (AUTO) 10.5 K/uL (1.8-7.7); NEUTROPHILS % (AUTO) 74.2 % (40.0-70.0); RED BLOOD CELL COUNT(AUTO) 3.34 MIL/uL (4.50-5.90); RED CELL DISTRIBUTION WIDTH 19.3 % (11.5-14.5); WHITE BLOOD COUNT (AUTO) 14.1 K/uL (4.5-11.0)
[2016-11-01 06:21] LABS: ANION GAP 11 mmol/L (8-16); CALCIUM, TOTAL 8.2 mg/dL (8.8-10.5); CARBON DIOXIDE 25 mmol/L (22-29); CHLORIDE 99 mmol/L (98-107); CREATININE 0.95 mg/dL (0.60-1.30); GLOMERULAR FILTR. RATE CALC > 60 mL/min (>60); PHOSPHORUS 4.1 mg/dL (2.5-4.9); POTASSIUM 3.6 mmol/L (3.5-5.1); SODIUM SERUM 135 mmol/L (136-145); TOTAL PROTEIN, SERUM 6.7 g/dL (6.4-8.2); UREA NITROGEN, BLOOD 18 mg/dL (7-18)
[2016-11-01 06:59] LABS: PLATELET COUNT (AUTO) 757 K/uL (150-450); RBC MORPHOLOGY COMMENT ABNORMAL RBC MORPH
[2016-11-01] MEDS: PANTOPRAZOLE SODIUM 40 MG/VIAL IVP SCH ×2 (09:12→21:12)
[2016-11-01] MEDS: HEPARIN SODIUM,PORCINE 5,000 UNITS/ML VIAL SQ SCH ×3 (09:12→23:08)
[2016-11-01] MEDS: INSULIN REGULAR, HUMAN 100 UNITS/ML SQ PRN (16:29)
[2016-11-01] MEDS ORDERED: SODIUM CHLORIDE 0.9% 250 ML IV ONE (18:16)
[2016-11-01 18:17] LABS: GLUCOSE,POINT OF CARE 125 MG/DL (70-110)
[2016-11-01 18:17] LABS: GLUCOSE,POINT OF CARE 116 MG/DL (70-110)
[2016-11-01 18:22] LABS: GLUCOSE,POINT OF CARE 116 MG/DL (70-110)
[2016-11-01 18:22] LABS: GLUCOSE,POINT OF CARE 113 MG/DL (70-110)
[2016-11-01 18:27] LABS: GLUCOSE,POINT OF CARE 111 MG/DL (70-110)
[2016-11-01 20:22] LABS: GLUCOSE,POINT OF CARE 114 MG/DL (70-110)
[2016-11-01 20:27] LABS: GLUCOSE,POINT OF CARE 117 MG/DL (70-110)
[2016-11-01 20:27] LABS: GLUCOSE,POINT OF CARE 121 MG/DL (70-110)
[2016-11-01] MEDS ORDERED: [UNRECOGNIZED DRUG - OTHER] IV SCH ×9 (22:00)
[2016-11-01] MEDS ORDERED: POTASSIUM PHOS M BASIC D BASIC IV SCH ×9 (22:00)
[2016-11-01] MEDS ORDERED: SODIUM CHLORIDE IV SCH ×9 (22:00)
[2016-11-01] MEDS ORDERED: TPN IV SCH ×9 (22:00)
[2016-11-02] MEDS: ALBUMIN HUMAN 25%-12.5GM/50ML 50 ML IV SCH ×3 (02:39→17:48)
[2016-11-02] MEDS: MetroNIDAZOLE 500 MG/NACL 100 ML IV SCH ×3 (02:39→17:48)
[2016-11-02 04:45] VITALS: BP 114/64
[2016-11-02] MEDS: PIPERACILLIN/TAZO 3.375 GM/D5W 50 ML IV SCH ×4 (05:15→22:17)
[2016-11-02] MEDS: VANCOMYCIN HCL 500 MG in DEXTROSE 5%-WATER 100 ML IV SCH ×2 (05:15→17:48)
[2016-11-02 06:27] LABS: ANION GAP 11 mmol/L (8-16); CALCIUM, TOTAL 8.6 mg/dL (8.8-10.5); CARBON DIOXIDE 24 mmol/L (22-29); CHLORIDE 105 mmol/L (98-107); CREATININE 1.08 mg/dL (0.60-1.30); GLOMERULAR FILTR. RATE CALC > 60 mL/min (>60); PHOSPHORUS 3.7 mg/dL (2.5-4.9); POTASSIUM 3.7 mmol/L (3.5-5.1); SODIUM SERUM 140 mmol/L (136-145); UREA NITROGEN, BLOOD 20 mg/dL (7-18)
[2016-11-02 07:29] VITALS: BP 108/64
[2016-11-02 09:32] LABS: GLUCOSE,POINT OF CARE 122 MG/DL (70-110)
[2016-11-02] MEDS: PANTOPRAZOLE SODIUM 40 MG/VIAL IVP SCH ×2 (09:32→21:00)
[2016-11-02] MEDS: HEPARIN SODIUM,PORCINE 5,000 UNITS/ML VIAL SQ SCH ×2 (09:32→16:42)
[2016-11-02 11:20] VITALS: BP 116/66
[2016-11-02] MEDS: MORPHINE SULFATE 4 MG/ML SYRINGE IVP PRN ×2 (11:42→18:55)
[2016-11-02] MEDS: INSULIN REGULAR, HUMAN 100 UNITS/ML SQ PRN (12:15)
[2016-11-02 12:17] LABS: GLUCOSE COMMENT 1 Juice/Food/D50 Given; GLUCOSE,POINT OF CARE 70 MG/DL (70-110)
[2016-11-02 12:22] LABS: GLUCOSE,POINT OF CARE 106 MG/DL (70-110)
[2016-11-02 12:22] LABS: GLUCOSE,POINT OF CARE 101 MG/DL (70-110)
[2016-11-02 12:26] LABS: GLUCOSE,POINT OF CARE 114 MG/DL (70-110)
[2016-11-02 12:26] LABS: GLUCOSE COMMENT 1 Received Meds; GLUCOSE,POINT OF CARE 135 MG/DL (70-110)
[2016-11-02 16:19] VITALS: BP 113/67
[2016-11-02 19:41] VITALS: BP 110/50
[2016-11-02] MEDS ORDERED: DEXTROSE 10%-WATER 1,000 ML IV ONE (21:02)
[2016-11-02] MEDS ORDERED: POTASSIUM PHOS M BASIC D BASIC IV SCH ×9 (22:00)
[2016-11-02] MEDS ORDERED: TPN IV SCH ×9 (22:00)
[2016-11-02] MEDS ORDERED: SODIUM CHLORIDE IV SCH ×9 (22:00)
[2016-11-02] MEDS ORDERED: [UNRECOGNIZED DRUG - OTHER] IV SCH ×9 (22:00)
[2016-11-02] MEDS ORDERED: SODIUM CHLORIDE 0.9% 250 ML IV ONE (22:12)
[2016-11-02 23:32] VITALS: BP 108/61
[2016-11-03] MEDS: HEPARIN SODIUM,PORCINE 5,000 UNITS/ML VIAL SQ SCH ×4 (00:21→23:57)
[2016-11-03] MEDS: INSULIN REGULAR, HUMAN 100 UNITS/ML SQ PRN (00:28)
[2016-11-03] MEDS: MORPHINE SULFATE 4 MG/ML SYRINGE IVP PRN ×2 (00:30→20:38)
[2016-11-03] MEDS ORDERED: SODIUM CHLORIDE 0.9% 250 ML IV ONE ×2 (03:16→21:45)
[2016-11-03 03:21] LABS: GLUCOSE,POINT OF CARE 109 MG/DL (70-110)
[2016-11-03 03:21] LABS: GLUCOSE COMMENT 1 Received Meds; GLUCOSE,POINT OF CARE 126 MG/DL (70-110)
[2016-11-03 03:21] LABS: GLUCOSE,POINT OF CARE 118 MG/DL (70-110)
[2016-11-03] MEDS: MetroNIDAZOLE 500 MG/NACL 100 ML IV SCH ×3 (03:30→18:05)
[2016-11-03] MEDS: ALBUMIN HUMAN 25%-12.5GM/50ML 50 ML IV SCH ×3 (03:31→18:05)
[2016-11-03] MEDS: PIPERACILLIN/TAZO 3.375 GM/D5W 50 ML IV SCH ×4 (04:03→21:56)
[2016-11-03 05:00] VITALS: BP 108/60
[2016-11-03] MEDS: VANCOMYCIN HCL 500 MG in DEXTROSE 5%-WATER 100 ML IV SCH (06:08)
[2016-11-03 06:14] LABS: BASOPHILS # (AUTO) 0.12 K/uL (0.00-0.20); BASOPHILS % (AUTO) 1.1 % (0.0-2.0); EOSINOPHILS # (AUTO) 0.41 K/uL (0.00-0.70); EOSINOPHILS % (AUTO) 3.83 % (1.0-6.0); HEMATOCRIT 29.3 % (41-53); HEMOGLOBIN 9.5 g/dL (13.5-17.5); LYMPHOCYTES # (AUTO) 1.3 K/uL (1.0-4.8); LYMPHOCYTES % (AUTO) 11.8 % (22.0-44.0); MEAN CORPUSCULAR HEMOGLOBIN 26.9 pg (26.0-34.0); MEAN CORPUSCULAR HGB CONC 32.5 G/dL (31.0-37.0); MEAN CORPUSCULAR VOLUME 83 fL (80-100); MONOCYTES # (AUTO) 1.5 K/uL (0.1-1.0); MONOCYTES % (AUTO) 13.4 % (2.0-9.0); NEUTROPHILS # (AUTO) 7.5 K/uL (1.8-7.7); NEUTROPHILS % (AUTO) 69.9 % (40.0-70.0); RED BLOOD CELL COUNT(AUTO) 3.55 MIL/uL (4.50-5.90); RED CELL DISTRIBUTION WIDTH 19.8 % (11.5-14.5); WHITE BLOOD COUNT (AUTO) 10.8 K/uL (4.5-11.0)
[2016-11-03 06:54] LABS: ANION GAP 11 mmol/L (8-16); CALCIUM, TOTAL 8.6 mg/dL (8.8-10.5); CARBON DIOXIDE 24 mmol/L (22-29); CHLORIDE 104 mmol/L (98-107); CREATININE 0.88 mg/dL (0.60-1.30); GLOMERULAR FILTR. RATE CALC > 60 mL/min (>60); PHOSPHORUS 3.8 mg/dL (2.5-4.9); PLATELET COUNT (AUTO) 818 K/uL (150-450); POTASSIUM 3.8 mmol/L (3.5-5.1); SODIUM SERUM 139 mmol/L (136-145); UREA NITROGEN, BLOOD 18 mg/dL (7-18)
[2016-11-03 07:04] VITALS: BP 108/64
[2016-11-03] MEDS: PANTOPRAZOLE SODIUM 40 MG/VIAL IVP SCH ×2 (09:07→20:38)
[2016-11-03] MEDS: ASPIRIN 81 MG CHEWABLE TABLET PO SCH (09:09)
[2016-11-03 11:21] VITALS: BP 112/62
[2016-11-03 15:14] VITALS: BP 111/68
[2016-11-03] MEDS: VANCOMYCIN HCL 750 MG in DEXTROSE 5%-WATER 150 ML IV SCH (17:17)
[2016-11-03 19:31] VITALS: BP 111/68
[2016-11-03] MEDS ORDERED: SODIUM CHLORIDE IV SCH ×9 (22:00)
[2016-11-03] MEDS ORDERED: [UNRECOGNIZED DRUG - OTHER] IV SCH ×9 (22:00)
[2016-11-03] MEDS ORDERED: POTASSIUM PHOS M BASIC D BASIC IV SCH ×9 (22:00)
[2016-11-03] MEDS ORDERED: TPN IV SCH ×9 (22:00)
[2016-11-03 23:50] VITALS: BP 121/70
[2016-11-04] MEDS: MetroNIDAZOLE 500 MG/NACL 100 ML IV SCH ×3 (03:01→17:51)
[2016-11-04] MEDS: ALBUMIN HUMAN 25%-12.5GM/50ML 50 ML IV SCH ×3 (03:01→17:53)
[2016-11-04] MEDS: PIPERACILLIN/TAZO 3.375 GM/D5W 50 ML IV SCH ×4 (04:05→22:11)
[2016-11-04] MEDS: INSULIN REGULAR, HUMAN 100 UNITS/ML SQ PRN (04:15)
[2016-11-04 05:02] VITALS: BP 115/61
[2016-11-04] MEDS: VANCOMYCIN HCL 750 MG in DEXTROSE 5%-WATER 150 ML IV SCH ×2 (05:23→18:33)
[2016-11-04 07:30] VITALS: BP 112/61
[2016-11-04] MEDS: PANTOPRAZOLE SODIUM 40 MG/VIAL IVP SCH ×2 (07:43→20:11)
[2016-11-04] MEDS: HEPARIN SODIUM,PORCINE 5,000 UNITS/ML VIAL SQ SCH ×3 (07:52→23:41)
[2016-11-04 08:38] LABS: ANION GAP 10 mmol/L (8-16); CALCIUM, TOTAL 8.7 mg/dL (8.8-10.5); CARBON DIOXIDE 24 mmol/L (22-29); CHLORIDE 102 mmol/L (98-107); CREATININE 0.97 mg/dL (0.60-1.30); GLOMERULAR FILTR. RATE CALC > 60 mL/min (>60); POTASSIUM 3.8 mmol/L (3.5-5.1); SODIUM SERUM 136 mmol/L (136-145); UREA NITROGEN, BLOOD 16 mg/dL (7-18)
[2016-11-04] MEDS: ASPIRIN 81 MG CHEWABLE TABLET PO SCH (08:45)
[2016-11-04 11:34] VITALS: BP 119/65
[2016-11-04 15:29] VITALS: BP 121/67
[2016-11-04] MEDS ORDERED: SODIUM CHLORIDE 0.9% 250 ML IV ONE ×2 (17:46)
[2016-11-04 19:36] VITALS: BP 115/66
[2016-11-04] MEDS ORDERED: [UNRECOGNIZED DRUG - OTHER] IV SCH ×9 (22:00)
[2016-11-04] MEDS ORDERED: TPN IV SCH ×9 (22:00)
[2016-11-04] MEDS ORDERED: SODIUM CHLORIDE IV SCH ×9 (22:00)
[2016-11-04] MEDS ORDERED: POTASSIUM PHOS M BASIC D BASIC IV SCH ×9 (22:00)
[2016-11-04 23:22] VITALS: BP 114/65
[2016-11-05] VITALS (20 sets, daily range): BP systolic 101–142; BP diastolic 51–80
[2016-11-05 00:17] LABS: GLUCOSE,POINT OF CARE 113 MG/DL (70-110)
[2016-11-05 00:17] LABS: GLUCOSE,POINT OF CARE 119 MG/DL (70-110)
[2016-11-05] MEDS: MetroNIDAZOLE 500 MG/NACL 100 ML IV SCH ×3 (02:57→19:36)
[2016-11-05] MEDS: ALBUMIN HUMAN 25%-12.5GM/50ML 50 ML IV SCH ×3 (02:57→18:25)
[2016-11-05] MEDS: MORPHINE SULFATE 4 MG/ML SYRINGE IVP PRN ×2 (03:37→19:57)
[2016-11-05] MEDS: PIPERACILLIN/TAZO 3.375 GM/D5W 50 ML IV SCH ×4 (04:01→23:32)
[2016-11-05] MEDS: VANCOMYCIN HCL 750 MG in DEXTROSE 5%-WATER 150 ML IV SCH ×2 (05:30→17:31)
[2016-11-05 07:10] LABS: BASOPHILS # (AUTO) 0.15 K/uL (0.00-0.20); BASOPHILS % (AUTO) 1.6 % (0.0-2.0); EOSINOPHILS # (AUTO) 0.38 K/uL (0.00-0.70); EOSINOPHILS % (AUTO) 4.18 % (1.0-6.0); HEMATOCRIT 30.8 % (41-53); HEMOGLOBIN 10.2 g/dL (13.5-17.5); LYMPHOCYTES # (AUTO) 1.1 K/uL (1.0-4.8); LYMPHOCYTES % (AUTO) 11.5 % (22.0-44.0); MEAN CORPUSCULAR HEMOGLOBIN 27.4 pg (26.0-34.0); MEAN CORPUSCULAR HGB CONC 33.1 G/dL (31.0-37.0); MEAN CORPUSCULAR VOLUME 83 fL (80-100); MONOCYTES # (AUTO) 1.3 K/uL (0.1-1.0); MONOCYTES % (AUTO) 14.2 % (2.0-9.0); NEUTROPHILS # (AUTO) 6.2 K/uL (1.8-7.7); NEUTROPHILS % (AUTO) 68.5 % (40.0-70.0); PLATELET COUNT (AUTO) 748 K/uL (150-450); RED BLOOD CELL COUNT(AUTO) 3.72 MIL/uL (4.50-5.90); RED CELL DISTRIBUTION WIDTH 20.5 % (11.5-14.5); WHITE BLOOD COUNT (AUTO) 9.1 K/uL (4.5-11.0)
[2016-11-05 07:13] LABS: RBC MORPHOLOGY COMMENT ABNORMAL RBC MORPH
[2016-11-05 07:49] LABS: ALANINE AMINOTRANSFERASE 71 U/L (12-78); ALBUMIN 3.6 g/dL (3.4-5.0); ANION GAP 12 mmol/L (8-16); ASPARTATE AMINOTRANSFERASE 68 U/L (15-37); BILIRUBIN,TOTAL 1.5 mg/dL (0.1-1.0); CALCIUM, TOTAL 9.1 mg/dL (8.8-10.5); CARBON DIOXIDE 24 mmol/L (22-29); CHLORIDE 102 mmol/L (98-107); CREATININE 1.01 mg/dL (0.60-1.30); GLOMERULAR FILTR. RATE CALC > 60 mL/min (>60); PHOSPHORUS 3.8 mg/dL (2.5-4.9); POTASSIUM 4.2 mmol/L (3.5-5.1); SODIUM SERUM 138 mmol/L (136-145); TOTAL PROTEIN, SERUM 7.1 g/dL (6.4-8.2); UREA NITROGEN, BLOOD 16 mg/dL (7-18)
[2016-11-05] MEDS: HEPARIN SODIUM,PORCINE 5,000 UNITS/ML VIAL SQ SCH ×3 (08:00→23:33)
[2016-11-05] MEDS: PANTOPRAZOLE SODIUM 40 MG/VIAL IVP SCH ×2 (08:26→19:56)
[2016-11-05] MEDS ORDERED: LIDOCAINE HCL/PF 1% 30 ML VIAL ONE (08:28)
[2016-11-05] MEDS ORDERED: SODIUM BICARBONATE 50 MEQ/50 ML VIAL ONE (08:28)
[2016-11-05] MEDS ORDERED: IOHEXOL 300 MG/ML 150 ML VIAL ONE (08:28)
[2016-11-05] MEDS ORDERED: HEPARIN SODIUM 1000 UNITS/NS 1,000 ML ONE (08:29)
[2016-11-05] MEDS: ASPIRIN 81 MG CHEWABLE TABLET PO SCH (09:00)
[2016-11-05] MEDS ORDERED: SODIUM CHLORIDE 0.9% 500 ML IV ONE (09:30)
[2016-11-05] MEDS ORDERED: HEPARIN SODIUM 2,000 UNITS in HEPARIN SODIUM 1000 UNITS/NS 1,000 ML IARTER ONE (09:30)
[2016-11-05] MEDS ORDERED: LIDOCAINE 1% 30 ML/SOD BICARB 8.4% 4 ML SQ ONE (09:30)
[2016-11-05] MEDS ORDERED: ASPIRIN 81 MG CHEWABLE TABLET ONE (09:37)
[2016-11-05] MEDS ORDERED: TICAGRELOR 90 MG TABLET ONE (09:38)
[2016-11-05] MEDS ORDERED: VERAPAMIL HCL 2.5 MG/ML 2 ML VIAL ONE (09:39)
[2016-11-05] MEDS ORDERED: NITROGLYCERIN 50 MG/D5% WATER 250 ML ONE (09:39)
[2016-11-05] MEDS ORDERED: IOHEXOL 300 MG/ML 50 ML VIAL ONE (09:44)
[2016-11-05] MEDS ORDERED: IOHEXOL 300 MG/ML 100 ML VIAL ONE (09:44)
[2016-11-05] MEDS ORDERED: IOHEXOL 300 MG/ML 50 ML VIAL IARTER ONE (10:00)
[2016-11-05] MEDS ORDERED: TICAGRELOR 90 MG TABLET PO ONE (10:00)
[2016-11-05] MEDS ORDERED: ASPIRIN 325 MG TABLET PO ONE (10:00)
[2016-11-05] MEDS ORDERED: IOHEXOL 300 MG/ML 100 ML VIAL IARTER ONE (10:00)
[2016-11-05] MEDS ORDERED: HEPARIN SODIUM,PORCINE 5,000 UNITS/ML VIAL IVP ONE (10:15)
[2016-11-05] MEDS ORDERED: IOHEXOL 300 MG/ML 150 ML VIAL IARTER ONE (10:15)
[2016-11-05] MEDS ORDERED: NITROGLYCERIN/D5W 50 MG/250 ML IV BOTTLE ICOR ONE (10:15)
[2016-11-05] MEDS ORDERED: VERAPAMIL HCL 2.5 MG/ML 2 ML VIAL ICOR ONE (10:15)
[2016-11-05] MEDS ORDERED: SODIUM CHLORIDE 0.9% 250 ML IV ONE (10:37)
[2016-11-05] MEDS: TICAGRELOR 90 MG TABLET PO SCH (19:56)
[2016-11-05] MEDS: CARVEDILOL 3.125 MG TABLET PO SCH (19:56)
[2016-11-05] MEDS: ATORVASTATIN CALCIUM 20 MG TABLET PO SCH (19:56)
[2016-11-05] MEDS ORDERED: TPN IV SCH ×9 (22:00)
[2016-11-05] MEDS ORDERED: SODIUM CHLORIDE IV SCH ×9 (22:00)
[2016-11-05] MEDS ORDERED: [UNRECOGNIZED DRUG - OTHER] IV SCH ×9 (22:00)
[2016-11-05] MEDS ORDERED: POTASSIUM PHOS M BASIC D BASIC IV SCH ×9 (22:00)
[2016-11-06] VITALS (8 sets, daily range): BP systolic 99–136; BP diastolic 59–78
[2016-11-06] MEDS: MORPHINE SULFATE 4 MG/ML SYRINGE IVP PRN ×2 (00:51→21:33)
[2016-11-06] MEDS: MetroNIDAZOLE 500 MG/NACL 100 ML IV SCH ×3 (02:59→18:57)
[2016-11-06] MEDS: ALBUMIN HUMAN 25%-12.5GM/50ML 50 ML IV SCH ×3 (03:00→18:37)
[2016-11-06] MEDS: PIPERACILLIN/TAZO 3.375 GM/D5W 50 ML IV SCH ×4 (04:20→21:34)
[2016-11-06] MEDS ORDERED: SODIUM CHLORIDE 0.9% 250 ML IV ONE ×2 (04:44→20:00)
[2016-11-06 05:03] LABS: BASOPHILS # (AUTO) 0.08 K/uL (0.00-0.20); BASOPHILS % (AUTO) 0.7 % (0.0-2.0); EOSINOPHILS # (AUTO) 0.43 K/uL (0.00-0.70); EOSINOPHILS % (AUTO) 3.93 % (1.0-6.0); HEMATOCRIT 28.9 % (41-53); HEMOGLOBIN 9.5 g/dL (13.5-17.5); LYMPHOCYTES # (AUTO) 0.8 K/uL (1.0-4.8); LYMPHOCYTES % (AUTO) 7.6 % (22.0-44.0); MEAN CORPUSCULAR HEMOGLOBIN 27.3 pg (26.0-34.0); MEAN CORPUSCULAR HGB CONC 32.9 G/dL (31.0-37.0); MEAN CORPUSCULAR VOLUME 83 fL (80-100); MONOCYTES # (AUTO) 1.3 K/uL (0.1-1.0); MONOCYTES % (AUTO) 11.5 % (2.0-9.0); NEUTROPHILS # (AUTO) 8.4 K/uL (1.8-7.7); NEUTROPHILS % (AUTO) 76.3 % (40.0-70.0); PLATELET COUNT (AUTO) 716 K/uL (150-450); RED BLOOD CELL COUNT(AUTO) 3.49 MIL/uL (4.50-5.90); RED CELL DISTRIBUTION WIDTH 21.5 % (11.5-14.5)
[2016-11-06 05:28] LABS: ALANINE AMINOTRANSFERASE 74 U/L (12-78); ALBUMIN 3.6 g/dL (3.4-5.0); ANION GAP 11 mmol/L (8-16); ASPARTATE AMINOTRANSFERASE 72 U/L (15-37); BILIRUBIN,TOTAL 1.4 mg/dL (0.1-1.0); CALCIUM, TOTAL 8.9 mg/dL (8.8-10.5); CARBON DIOXIDE 24 mmol/L (22-29); CHLORIDE 100 mmol/L (98-107); CREATININE 1.01 mg/dL (0.60-1.30); GLOMERULAR FILTR. RATE CALC > 60 mL/min (>60); PHOSPHORUS 3.6 mg/dL (2.5-4.9); POTASSIUM 3.9 mmol/L (3.5-5.1); SODIUM SERUM 135 mmol/L (136-145); TOTAL PROTEIN, SERUM 6.9 g/dL (6.4-8.2); UREA NITROGEN, BLOOD 14 mg/dL (7-18)
[2016-11-06] MEDS: VANCOMYCIN HCL 750 MG in DEXTROSE 5%-WATER 150 ML IV SCH ×2 (06:20→20:51)
[2016-11-06 06:21] LABS: GLUCOSE,POINT OF CARE 105 MG/DL (70-110)
[2016-11-06 06:21] LABS: GLUCOSE,POINT OF CARE 108 MG/DL (70-110)
[2016-11-06 06:21] LABS: GLUCOSE COMMENT 1 Received Meds; GLUCOSE,POINT OF CARE 124 MG/DL (70-110)
[2016-11-06 06:21] LABS: GLUCOSE,POINT OF CARE 101 MG/DL (70-110)
[2016-11-06 06:21] LABS: GLUCOSE,POINT OF CARE 94 MG/DL (70-110)
[2016-11-06] MEDS: PANTOPRAZOLE SODIUM 40 MG/VIAL IVP SCH ×2 (08:36→20:51)
[2016-11-06] MEDS: HEPARIN SODIUM,PORCINE 5,000 UNITS/ML VIAL SQ SCH ×3 (08:36→23:13)
[2016-11-06] MEDS: TICAGRELOR 90 MG TABLET PO SCH ×2 (08:37→21:30)
[2016-11-06] MEDS: ASPIRIN 81 MG CHEWABLE TABLET PO SCH (08:37)
[2016-11-06] MEDS: CARVEDILOL 3.125 MG TABLET PO SCH ×2 (08:37→21:00)
[2016-11-06] MEDS: INSULIN REGULAR, HUMAN 100 UNITS/ML SQ PRN (08:38)
[2016-11-06 08:40] LABS: RBC MORPHOLOGY COMMENT ABNORMAL RBC MORPH
[2016-11-06] MEDS: ATORVASTATIN CALCIUM 20 MG TABLET PO SCH (20:52)
[2016-11-06] MEDS: [UNRECOGNIZED DRUG - OTHER] IV SCH ×10 (21:34)
[2016-11-06] MEDS: SODIUM PHOS M BASIC D BASIC IV SCH ×10 (21:34)
[2016-11-06] MEDS: TPN IV SCH ×10 (21:34)
[2016-11-06] MEDS: SODIUM CHLORIDE IV SCH ×10 (21:34)
[2016-11-07] VITALS (7 sets, daily range): BP systolic 105–120; BP diastolic 55–94
[2016-11-07] MEDS: INSULIN REGULAR, HUMAN 100 UNITS/ML SQ PRN (01:11)
[2016-11-07] MEDS: ALBUMIN HUMAN 25%-12.5GM/50ML 50 ML IV SCH ×3 (02:39→19:00)
[2016-11-07] MEDS: MetroNIDAZOLE 500 MG/NACL 100 ML IV SCH ×3 (03:18→20:41)
[2016-11-07] MEDS: PIPERACILLIN/TAZO 3.375 GM/D5W 50 ML IV SCH ×4 (04:37→23:38)
[2016-11-07 06:51] LABS: ALANINE AMINOTRANSFERASE 72 U/L (12-78); ALBUMIN 3.7 g/dL (3.4-5.0); ANION GAP 12 mmol/L (8-16); ASPARTATE AMINOTRANSFERASE 58 U/L (15-37); BILIRUBIN,TOTAL 1.2 mg/dL (0.1-1.0); CALCIUM, TOTAL 8.8 mg/dL (8.8-10.5); CARBON DIOXIDE 25 mmol/L (22-29); CHLORIDE 100 mmol/L (98-107); CREATININE 1.07 mg/dL (0.60-1.30); GLOMERULAR FILTR. RATE CALC > 60 mL/min (>60); PHOSPHORUS 3.5 mg/dL (2.5-4.9); POTASSIUM 3.7 mmol/L (3.5-5.1); SODIUM SERUM 137 mmol/L (136-145); TOTAL PROTEIN, SERUM 7.1 g/dL (6.4-8.2); UREA NITROGEN, BLOOD 17 mg/dL (7-18)
[2016-11-07] MEDS: VANCOMYCIN HCL 750 MG in DEXTROSE 5%-WATER 150 ML IV SCH ×2 (08:51→21:47)
[2016-11-07] MEDS: CARVEDILOL 3.125 MG TABLET PO SCH ×2 (08:53→20:43)
[2016-11-07] MEDS: PANTOPRAZOLE SODIUM 40 MG/VIAL IVP SCH ×2 (08:53→20:42)
[2016-11-07] MEDS: HEPARIN SODIUM,PORCINE 5,000 UNITS/ML VIAL SQ SCH ×2 (08:53→17:23)
[2016-11-07] MEDS: TICAGRELOR 90 MG TABLET PO SCH ×2 (08:54→20:43)
[2016-11-07] MEDS: ASPIRIN 81 MG CHEWABLE TABLET PO SCH (08:58)
[2016-11-07] MEDS: ISOSORBIDE MONONITRATE 30 MG ER TABLET PO SCH (13:00)
[2016-11-07 13:01] LABS: GLUCOSE,POINT OF CARE 113 MG/DL (70-110)
[2016-11-07 14:22] LABS: GLUCOSE,POINT OF CARE 111 MG/DL (70-110)
[2016-11-07 15:52] LABS: GLUCOSE COMMENT 1 Received Meds; GLUCOSE,POINT OF CARE 125 MG/DL (70-110)
[2016-11-07 15:52] LABS: GLUCOSE COMMENT 1 Received Meds; GLUCOSE,POINT OF CARE 153 MG/DL (70-110)
[2016-11-07 15:52] LABS: GLUCOSE,POINT OF CARE 111 MG/DL (70-110)
[2016-11-07 15:52] LABS: GLUCOSE,POINT OF CARE 120 MG/DL (70-110)
[2016-11-07 16:31] LABS: GLUCOSE,POINT OF CARE 101 MG/DL (70-110)
[2016-11-07] MEDS: MORPHINE SULFATE 4 MG/ML SYRINGE IVP PRN (20:41)
[2016-11-07] MEDS: ATORVASTATIN CALCIUM 20 MG TABLET PO SCH (20:45)
[2016-11-07] MEDS: TPN IV SCH ×10 (21:47)
[2016-11-07] MEDS: [UNRECOGNIZED DRUG - OTHER] IV SCH ×10 (21:47)
[2016-11-07] MEDS: SODIUM PHOS M BASIC D BASIC IV SCH ×10 (21:47)
[2016-11-07] MEDS: SODIUM CHLORIDE IV SCH ×10 (21:47)
[2016-11-08] MEDS: HEPARIN SODIUM,PORCINE 5,000 UNITS/ML VIAL SQ SCH ×3 (00:07→16:00)
[2016-11-08] MEDS: ALBUMIN HUMAN 25%-12.5GM/50ML 50 ML IV SCH ×3 (03:00→19:00)
[2016-11-08 04:42] VITALS: BP 120/64
[2016-11-08] MEDS: PIPERACILLIN/TAZO 3.375 GM/D5W 50 ML IV SCH ×4 (05:35→23:52)
[2016-11-08] MEDS: MetroNIDAZOLE 500 MG/NACL 100 ML IV SCH ×3 (05:36→19:41)
[2016-11-08 07:08] VITALS: BP 113/68
[2016-11-08 07:32] LABS: GLUCOSE,POINT OF CARE 109 MG/DL (70-110)
[2016-11-08 07:32] LABS: GLUCOSE,POINT OF CARE 112 MG/DL (70-110)
[2016-11-08 07:32] LABS: GLUCOSE,POINT OF CARE 101 MG/DL (70-110)
[2016-11-08 07:32] LABS: GLUCOSE COMMENT 1 Received Meds; GLUCOSE,POINT OF CARE 124 MG/DL (70-110)
[2016-11-08 07:32] LABS: GLUCOSE,POINT OF CARE 107 MG/DL (70-110)
[2016-11-08] MEDS: ISOSORBIDE MONONITRATE 30 MG ER TABLET PO SCH (08:06)
[2016-11-08] MEDS: TICAGRELOR 90 MG TABLET PO SCH ×2 (08:06→20:55)
[2016-11-08] MEDS: CARVEDILOL 3.125 MG TABLET PO SCH (08:06)
[2016-11-08] MEDS: ASPIRIN 81 MG CHEWABLE TABLET PO SCH (08:07)
[2016-11-08] MEDS: PANTOPRAZOLE SODIUM 40 MG/VIAL IVP SCH ×2 (08:07→21:13)
[2016-11-08] MEDS: VANCOMYCIN HCL 750 MG in DEXTROSE 5%-WATER 150 ML IV SCH ×2 (08:08→20:55)
[2016-11-08 08:16] LABS: HEMATOCRIT 33.8 % (41-53); HEMOGLOBIN 10.7 g/dL (13.5-17.5); MEAN CORPUSCULAR HEMOGLOBIN 26.9 pg (26.0-34.0); MEAN CORPUSCULAR HGB CONC 31.7 G/dL (31.0-37.0); MEAN CORPUSCULAR VOLUME 85 fL (80-100); PLATELET COUNT (AUTO) 702 K/uL (150-450); RED BLOOD CELL COUNT(AUTO) 3.98 MIL/uL (4.50-5.90); RED CELL DISTRIBUTION WIDTH 21.9 % (11.5-14.5)
[2016-11-08 08:30] LABS: ALANINE AMINOTRANSFERASE 72 U/L (12-78); ALBUMIN 3.7 g/dL (3.4-5.0); ANION GAP 8 mmol/L (8-16); ASPARTATE AMINOTRANSFERASE 56 U/L (15-37); CALCIUM, TOTAL 8.9 mg/dL (8.8-10.5); CARBON DIOXIDE 27 mmol/L (22-29); CHLORIDE 102 mmol/L (98-107); CREATININE 1.09 mg/dL (0.60-1.30); GLOMERULAR FILTR. RATE CALC > 60 mL/min (>60); PHOSPHORUS 3.6 mg/dL (2.5-4.9); POTASSIUM 4.4 mmol/L (3.5-5.1); SODIUM SERUM 137 mmol/L (136-145); TOTAL PROTEIN, SERUM 7.5 g/dL (6.4-8.2); UREA NITROGEN, BLOOD 19 mg/dL (7-18)
[2016-11-08 11:04] LABS: BAND NEUTROPHILS % (MANUAL) 4 % (1-5); LYMPHOCYTES % (MANUAL) 38 % (22-44); TOTAL CELLS COUNTED 100
[2016-11-08 11:05] LABS: RBC MORPHOLOGY COMMENT ABNORMAL RBC MORPH
[2016-11-08 11:58] VITALS: BP 100/54
[2016-11-08] MEDS: METOPROLOL TARTRATE 25 MG TABLET PO SCH ×2 (12:45→21:00)
[2016-11-08 16:05] VITALS: BP 122/65
[2016-11-08 19:18] VITALS: BP 111/76
[2016-11-08] MEDS: ATORVASTATIN CALCIUM 20 MG TABLET PO SCH (20:55)
[2016-11-08] MEDS ORDERED: SODIUM PHOS M BASIC D BASIC IV SCH ×9 (22:00)
[2016-11-08] MEDS ORDERED: [UNRECOGNIZED DRUG - OTHER] IV SCH ×9 (22:00)
[2016-11-08] MEDS ORDERED: TPN IV SCH ×9 (22:00)
[2016-11-08] MEDS ORDERED: SODIUM CHLORIDE IV SCH ×9 (22:00)
[2016-11-08 23:09] VITALS: BP 113/67
[2016-11-09] MEDS: HEPARIN SODIUM,PORCINE 5,000 UNITS/ML VIAL SQ SCH ×4 (00:17→23:41)
[2016-11-09] MEDS: ALBUMIN HUMAN 25%-12.5GM/50ML 50 ML IV SCH ×3 (03:00→18:04)
[2016-11-09] MEDS: MetroNIDAZOLE 500 MG/NACL 100 ML IV SCH ×3 (03:27→18:07)
[2016-11-09 03:50] VITALS: BP 129/72
[2016-11-09] MEDS: MORPHINE SULFATE 4 MG/ML SYRINGE IVP PRN (03:53)
[2016-11-09] MEDS: PIPERACILLIN/TAZO 3.375 GM/D5W 50 ML IV SCH ×4 (05:02→21:21)
[2016-11-09 07:12] VITALS: BP 118/67
[2016-11-09] MEDS: VANCOMYCIN HCL 750 MG in DEXTROSE 5%-WATER 150 ML IV SCH ×2 (08:55→18:40)
[2016-11-09] MEDS: PANTOPRAZOLE SODIUM 40 MG/VIAL IVP SCH ×2 (08:55→21:00)
[2016-11-09] MEDS: ISOSORBIDE MONONITRATE 30 MG ER TABLET PO SCH (08:56)
[2016-11-09] MEDS: TICAGRELOR 90 MG TABLET PO SCH ×2 (08:57→20:59)
[2016-11-09] MEDS: ASPIRIN 81 MG CHEWABLE TABLET PO SCH (08:57)
[2016-11-09] MEDS: METOPROLOL TARTRATE 25 MG TABLET PO SCH ×2 (08:57→21:00)
[2016-11-09 09:04] LABS: BASOPHILS # (AUTO) 0.16 K/uL (0.00-0.20); BASOPHILS % (AUTO) 2.8 % (0.0-2.0); EOSINOPHILS # (AUTO) 0.73 K/uL (0.00-0.70); EOSINOPHILS % (AUTO) 12.61 % (1.0-6.0); HEMATOCRIT 29.9 % (41-53); HEMOGLOBIN 10.2 g/dL (13.5-17.5); LYMPHOCYTES # (AUTO) 1.1 K/uL (1.0-4.8); LYMPHOCYTES % (AUTO) 19.2 % (22.0-44.0); MEAN CORPUSCULAR HEMOGLOBIN 28.1 pg (26.0-34.0); MEAN CORPUSCULAR VOLUME 83 fL (80-100); MONOCYTES # (AUTO) 0.9 K/uL (0.1-1.0); MONOCYTES % (AUTO) 16.2 % (2.0-9.0); NEUTROPHILS # (AUTO) 2.9 K/uL (1.8-7.7); NEUTROPHILS % (AUTO) 49.3 % (40.0-70.0); PLATELET COUNT (AUTO) 540 K/uL (150-450); RED BLOOD CELL COUNT(AUTO) 3.62 MIL/uL (4.50-5.90); RED CELL DISTRIBUTION WIDTH 22.3 % (11.5-14.5); WHITE BLOOD COUNT (AUTO) 5.8 K/uL (4.5-11.0)
[2016-11-09] MEDS ORDERED: SODIUM CHLORIDE 0.9% 100 ML ONE ×2 (09:05→13:21)
[2016-11-09 09:34] LABS: ALANINE AMINOTRANSFERASE 68 U/L (12-78); ALBUMIN 3.5 g/dL (3.4-5.0); ANION GAP 11 mmol/L (8-16); ASPARTATE AMINOTRANSFERASE 48 U/L (15-37); BILIRUBIN,TOTAL 0.9 mg/dL (0.1-1.0); CALCIUM, TOTAL 8.7 mg/dL (8.8-10.5); CARBON DIOXIDE 24 mmol/L (22-29); CHLORIDE 104 mmol/L (98-107); CREATININE 0.97 mg/dL (0.60-1.30); GLOMERULAR FILTR. RATE CALC > 60 mL/min (>60); PHOSPHORUS 3.5 mg/dL (2.5-4.9); POTASSIUM 3.9 mmol/L (3.5-5.1); SODIUM SERUM 139 mmol/L (136-145); TOTAL PROTEIN, SERUM 7.1 g/dL (6.4-8.2); UREA NITROGEN, BLOOD 19 mg/dL (7-18)
[2016-11-09 10:09] LABS: RBC MORPHOLOGY COMMENT ABNORMAL RBC MORPH
[2016-11-09 11:34] VITALS: BP 106/61
[2016-11-09] MEDS: INSULIN REGULAR, HUMAN 100 UNITS/ML SQ PRN ×2 (13:41→18:05)
[2016-11-09 16:18] VITALS: BP 111/71
[2016-11-09 19:34] VITALS: BP 119/71
[2016-11-09] MEDS: ATORVASTATIN CALCIUM 20 MG TABLET PO SCH (20:59)
[2016-11-09] MEDS: [UNRECOGNIZED DRUG - OTHER] IV SCH ×9 (23:41)
[2016-11-09] MEDS: TPN IV SCH ×9 (23:41)
[2016-11-09] MEDS: SODIUM PHOS M BASIC D BASIC IV SCH ×9 (23:41)
[2016-11-09] MEDS: SODIUM CHLORIDE IV SCH ×9 (23:41)
[2016-11-10] VITALS (9 sets, daily range): BP systolic 92–122; BP diastolic 53–73
[2016-11-10] MEDS: MetroNIDAZOLE 500 MG/NACL 100 ML IV SCH ×3 (03:41→18:31)
[2016-11-10] MEDS: ALBUMIN HUMAN 25%-12.5GM/50ML 50 ML IV SCH ×3 (03:42→21:05)
[2016-11-10] MEDS: MORPHINE SULFATE 4 MG/ML SYRINGE IVP PRN (04:16)
[2016-11-10] MEDS: PIPERACILLIN/TAZO 3.375 GM/D5W 50 ML IV SCH ×4 (04:52→22:56)
[2016-11-10] MEDS ORDERED: SODIUM CHLORIDE 0.9% 100 ML ONE (08:01)
[2016-11-10] MEDS: VANCOMYCIN HCL 750 MG in DEXTROSE 5%-WATER 150 ML IV SCH ×2 (09:08→21:06)
[2016-11-10] MEDS: TICAGRELOR 90 MG TABLET PO SCH ×2 (09:09→22:56)
[2016-11-10] MEDS: HEPARIN SODIUM,PORCINE 5,000 UNITS/ML VIAL SQ SCH ×3 (09:09→22:56)
[2016-11-10] MEDS: PANTOPRAZOLE SODIUM 40 MG/VIAL IVP SCH ×2 (09:09→21:04)
[2016-11-10] MEDS: ASPIRIN 81 MG CHEWABLE TABLET PO SCH (09:09)
[2016-11-10] MEDS: ISOSORBIDE MONONITRATE 30 MG ER TABLET PO SCH (09:10)
[2016-11-10] MEDS: METOPROLOL TARTRATE 25 MG TABLET PO SCH ×2 (09:10→21:00)
[2016-11-10] MEDS ORDERED: SODIUM CHLORIDE 0.9% 250 ML IV ONE (15:53)
[2016-11-10] MEDS: INSULIN REGULAR, HUMAN 100 UNITS/ML SQ PRN (17:49)
[2016-11-10] MEDS: ATORVASTATIN CALCIUM 20 MG TABLET PO SCH (21:03)
[2016-11-10] MEDS: [UNRECOGNIZED DRUG - OTHER] IV SCH ×9 (22:57)
[2016-11-10] MEDS: SODIUM CHLORIDE IV SCH ×9 (22:57)
[2016-11-10] MEDS: SODIUM PHOS M BASIC D BASIC IV SCH ×9 (22:57)
[2016-11-10] MEDS: TPN IV SCH ×9 (22:57)
[2016-11-11 00:17] LABS: GLUCOSE,POINT OF CARE 87 MG/DL (70-110)
[2016-11-11] MEDS: ALBUMIN HUMAN 25%-12.5GM/50ML 50 ML IV SCH ×3 (03:12→17:19)
[2016-11-11] MEDS: PIPERACILLIN/TAZO 3.375 GM/D5W 50 ML IV SCH ×4 (03:12→21:26)
[2016-11-11] MEDS: MetroNIDAZOLE 500 MG/NACL 100 ML IV SCH ×3 (03:12→17:20)
[2016-11-11 05:29] VITALS: BP 122/74
[2016-11-11 05:52] LABS: GLUCOSE,POINT OF CARE 88 MG/DL (70-110)
[2016-11-11 07:35] LABS: BASOPHILS # (AUTO) 0.16 K/uL (0.00-0.20); BASOPHILS % (AUTO) 2.6 % (0.0-2.0); EOSINOPHILS # (AUTO) 0.87 K/uL (0.00-0.70); EOSINOPHILS % (AUTO) 14.19 % (1.0-6.0); HEMATOCRIT 28.9 % (41-53); HEMOGLOBIN 9.5 g/dL (13.5-17.5); LYMPHOCYTES # (AUTO) 0.9 K/uL (1.0-4.8); LYMPHOCYTES % (AUTO) 15.3 % (22.0-44.0); MEAN CORPUSCULAR HEMOGLOBIN 27.5 pg (26.0-34.0); MEAN CORPUSCULAR HGB CONC 32.9 G/dL (31.0-37.0); MEAN CORPUSCULAR VOLUME 83 fL (80-100); MONOCYTES % (AUTO) 15.6 % (2.0-9.0); NEUTROPHILS # (AUTO) 3.2 K/uL (1.8-7.7); NEUTROPHILS % (AUTO) 52.3 % (40.0-70.0); PLATELET COUNT (AUTO) 503 K/uL (150-450); RED BLOOD CELL COUNT(AUTO) 3.46 MIL/uL (4.50-5.90); RED CELL DISTRIBUTION WIDTH 22.6 % (11.5-14.5); WHITE BLOOD COUNT (AUTO) 6.1 K/uL (4.5-11.0)
[2016-11-11 07:49] VITALS: BP 110/66
[2016-11-11 08:00] LABS: ALANINE AMINOTRANSFERASE 59 U/L (12-78); ALBUMIN 3.9 g/dL (3.4-5.0); ANION GAP 11 mmol/L (8-16); ASPARTATE AMINOTRANSFERASE 41 U/L (15-37); CALCIUM, TOTAL 8.6 mg/dL (8.8-10.5); CARBON DIOXIDE 25 mmol/L (22-29); CHLORIDE 105 mmol/L (98-107); CREATININE 0.97 mg/dL (0.60-1.30); GLOMERULAR FILTR. RATE CALC > 60 mL/min (>60); POTASSIUM 3.9 mmol/L (3.5-5.1); RBC MORPHOLOGY COMMENT ABNORMAL RBC MORPH; SODIUM SERUM 141 mmol/L (136-145); TOTAL PROTEIN, SERUM 7.2 g/dL (6.4-8.2); UREA NITROGEN, BLOOD 16 mg/dL (7-18)
[2016-11-11] MEDS: PANTOPRAZOLE SODIUM 40 MG/VIAL IVP SCH ×2 (08:41→20:02)
[2016-11-11] MEDS: VANCOMYCIN HCL 750 MG in DEXTROSE 5%-WATER 150 ML IV SCH ×2 (08:41→20:01)
[2016-11-11] MEDS: METOPROLOL TARTRATE 25 MG TABLET PO SCH ×2 (08:42→20:02)
[2016-11-11] MEDS: HEPARIN SODIUM,PORCINE 5,000 UNITS/ML VIAL SQ SCH ×3 (08:42→22:59)
[2016-11-11] MEDS: ASPIRIN 81 MG CHEWABLE TABLET PO SCH (08:42)
[2016-11-11] MEDS: ISOSORBIDE MONONITRATE 30 MG ER TABLET PO SCH (08:42)
[2016-11-11] MEDS: TICAGRELOR 90 MG TABLET PO SCH ×2 (08:42→20:02)
[2016-11-11 10:13] LABS: PHOSPHORUS 3.5 mg/dL (2.5-4.9)
[2016-11-11] MEDS: INSULIN REGULAR, HUMAN 100 UNITS/ML SQ PRN (11:25)
[2016-11-11 11:50] VITALS: BP 114/56
[2016-11-11 11:52] LABS: GLUCOSE,POINT OF CARE 118 MG/DL (70-110)
[2016-11-11 11:52] LABS: GLUCOSE,POINT OF CARE 127 MG/DL (70-110)
[2016-11-11 11:57] LABS: GLUCOSE,POINT OF CARE 101 MG/DL (70-110)
[2016-11-11 11:57] LABS: GLUCOSE,POINT OF CARE 112 MG/DL (70-110)
[2016-11-11 11:57] LABS: GLUCOSE,POINT OF CARE 130 MG/DL (70-110)
[2016-11-11 11:57] LABS: GLUCOSE,POINT OF CARE 100 MG/DL (70-110)
[2016-11-11 11:57] LABS: GLUCOSE COMMENT 1 Received Meds; GLUCOSE,POINT OF CARE 139 MG/DL (70-110)
[2016-11-11 11:58] LABS: GLUCOSE COMMENT 1 Received Meds; GLUCOSE,POINT OF CARE 161 MG/DL (70-110)
[2016-11-11 12:42] LABS: GLUCOSE,POINT OF CARE 85 MG/DL (70-110)
[2016-11-11 12:43] LABS: GLUCOSE,POINT OF CARE 110 MG/DL (70-110)
[2016-11-11 12:47] LABS: GLUCOSE,POINT OF CARE 97 MG/DL (70-110)
[2016-11-11 12:47] LABS: GLUCOSE,POINT OF CARE 99 MG/DL (70-110)
[2016-11-11 12:47] LABS: GLUCOSE,POINT OF CARE 105 MG/DL (70-110)
[2016-11-11 12:52] LABS: GLUCOSE,POINT OF CARE 109 MG/DL (70-110)
[2016-11-11 12:52] LABS: GLUCOSE,POINT OF CARE 102 MG/DL (70-110)
[2016-11-11 16:02] VITALS: BP 106/62
[2016-11-11 19:16] LABS: GLUCOSE,POINT OF CARE 83 MG/DL (70-110)
[2016-11-11 19:44] VITALS: BP 120/66
[2016-11-11] MEDS: ATORVASTATIN CALCIUM 20 MG TABLET PO SCH (20:02)
[2016-11-11] MEDS: SODIUM PHOS M BASIC D BASIC IV SCH ×9 (22:59)
[2016-11-11] MEDS: [UNRECOGNIZED DRUG - OTHER] IV SCH ×9 (22:59)
[2016-11-11] MEDS: TPN IV SCH ×9 (22:59)
[2016-11-11] MEDS: SODIUM CHLORIDE IV SCH ×9 (22:59)
[2016-11-11 23:25] VITALS: BP 100/56
[2016-11-12] MEDS: MetroNIDAZOLE 500 MG/NACL 100 ML IV SCH ×3 (01:58→19:16)
[2016-11-12] MEDS: ALBUMIN HUMAN 25%-12.5GM/50ML 50 ML IV SCH ×3 (01:58→19:17)
[2016-11-12] MEDS: PIPERACILLIN/TAZO 3.375 GM/D5W 50 ML IV SCH ×4 (04:12→23:05)
[2016-11-12 04:51] VITALS: BP 124/55
[2016-11-12 06:02] LABS: GLUCOSE,POINT OF CARE 91 MG/DL (70-110)
[2016-11-12 06:12] LABS: GLUCOSE,POINT OF CARE 91 MG/DL (70-110)
[2016-11-12 06:55] LABS: BASOPHILS % (AUTO) 2.2 % (0.0-2.0); EOSINOPHILS % (AUTO) 13.9 % (1.0-6.0); HEMATOCRIT 29.6 % (41-53); HEMOGLOBIN 9.6 g/dL (13.5-17.5); LYMPHOCYTES % (AUTO) 14.8 % (22.0-44.0); MEAN CORPUSCULAR HGB CONC 32.3 G/dL (31.0-37.0); MEAN CORPUSCULAR VOLUME 84 fL (80-100); MONOCYTES # (AUTO) 0.9 K/uL (0.1-1.0); MONOCYTES % (AUTO) 12.6 % (2.0-9.0); NEUTROPHILS % (AUTO) 56.5 % (40.0-70.0); PLATELET COUNT (AUTO) 526 K/uL (150-450); RED BLOOD CELL COUNT(AUTO) 3.54 MIL/uL (4.50-5.90); WHITE BLOOD COUNT (AUTO) 7.1 K/uL (4.5-11.0)
[2016-11-12 07:22] LABS: ALANINE AMINOTRANSFERASE 52 U/L (12-78); ANION GAP 11 mmol/L (8-16); ASPARTATE AMINOTRANSFERASE 36 U/L (15-37); BILIRUBIN,TOTAL 0.9 mg/dL (0.1-1.0); CALCIUM, TOTAL 8.8 mg/dL (8.8-10.5); CARBON DIOXIDE 25 mmol/L (22-29); CHLORIDE 105 mmol/L (98-107); CREATININE 0.93 mg/dL (0.60-1.30); GLOMERULAR FILTR. RATE CALC > 60 mL/min (>60); POTASSIUM 3.9 mmol/L (3.5-5.1); SODIUM SERUM 141 mmol/L (136-145); TOTAL PROTEIN, SERUM 7.4 g/dL (6.4-8.2); UREA NITROGEN, BLOOD 18 mg/dL (7-18)
[2016-11-12 07:40] VITALS: BP 127/80
[2016-11-12] MEDS: VANCOMYCIN HCL 750 MG in DEXTROSE 5%-WATER 150 ML IV SCH ×2 (08:32→20:22)
[2016-11-12] MEDS: HEPARIN SODIUM,PORCINE 5,000 UNITS/ML VIAL SQ SCH ×3 (08:33→23:05)
[2016-11-12] MEDS: METOPROLOL TARTRATE 25 MG TABLET PO SCH ×2 (08:33→20:23)
[2016-11-12] MEDS: TICAGRELOR 90 MG TABLET PO SCH ×2 (08:33→20:23)
[2016-11-12] MEDS: ASPIRIN 81 MG CHEWABLE TABLET PO SCH (08:33)
[2016-11-12] MEDS: ISOSORBIDE MONONITRATE 30 MG ER TABLET PO SCH (08:33)
[2016-11-12] MEDS: PANTOPRAZOLE SODIUM 40 MG/VIAL IVP SCH ×2 (08:34→20:22)
[2016-11-12 11:02] LABS: RBC MORPHOLOGY COMMENT ABNORMAL RBC MORPH
[2016-11-12 11:38] VITALS: BP 105/63
[2016-11-12 11:57] LABS: GLUCOSE,POINT OF CARE 121 MG/DL (70-110)
[2016-11-12 15:46] VITALS: BP 102/58
[2016-11-12 17:27] LABS: GLUCOSE,POINT OF CARE 92 MG/DL (70-110)
[2016-11-12 19:26] VITALS: BP 111/61
[2016-11-12] MEDS: ATORVASTATIN CALCIUM 20 MG TABLET PO SCH (20:23)
[2016-11-12 21:57] LABS: GLUCOSE,POINT OF CARE 95 MG/DL (70-110)
[2016-11-12] MEDS: SODIUM CHLORIDE IV SCH ×9 (23:05)
[2016-11-12] MEDS: [UNRECOGNIZED DRUG - OTHER] IV SCH ×9 (23:05)
[2016-11-12] MEDS: SODIUM PHOS M BASIC D BASIC IV SCH ×9 (23:05)
[2016-11-12] MEDS: TPN IV SCH ×9 (23:05)
[2016-11-13] MEDS: MetroNIDAZOLE 500 MG/NACL 100 ML IV SCH ×2 (02:58→10:52)
[2016-11-13] MEDS: ALBUMIN HUMAN 25%-12.5GM/50ML 50 ML IV SCH (02:58)
[2016-11-13] MEDS: PIPERACILLIN/TAZO 3.375 GM/D5W 50 ML IV SCH ×2 (04:40→09:48)
[2016-11-13 04:47] VITALS: BP 122/70
[2016-11-13 05:00] VITALS: BP 102/65
[2016-11-13 07:09] LABS: ANION GAP 10 mmol/L (8-16); CALCIUM, TOTAL 8.5 mg/dL (8.8-10.5); CARBON DIOXIDE 24 mmol/L (22-29); CHLORIDE 104 mmol/L (98-107); CREATININE 0.98 mg/dL (0.60-1.30); GLOMERULAR FILTR. RATE CALC > 60 mL/min (>60); POTASSIUM 3.8 mmol/L (3.5-5.1); SODIUM SERUM 138 mmol/L (136-145); UREA NITROGEN, BLOOD 16 mg/dL (7-18)
[2016-11-13 07:37] VITALS: BP 115/64
[2016-11-13] MEDS: VANCOMYCIN HCL 750 MG in DEXTROSE 5%-WATER 150 ML IV SCH (07:55)
[2016-11-13] MEDS: ASPIRIN 81 MG CHEWABLE TABLET PO SCH (07:57)
[2016-11-13] MEDS: TICAGRELOR 90 MG TABLET PO SCH (07:57)
[2016-11-13] MEDS: HEPARIN SODIUM,PORCINE 5,000 UNITS/ML VIAL SQ SCH (07:58)
[2016-11-13] MEDS: PANTOPRAZOLE SODIUM 40 MG/VIAL IVP SCH (07:58)
[2016-11-13 08:01] LABS: GLUCOSE,POINT OF CARE 83 MG/DL (70-110)
[2016-11-13] MEDS ORDERED: ATOR20TA86 PO (11:10)
[2016-11-13] MEDS ORDERED: ASPI81 PO ×3 (11:10→13:51)
[2016-11-13] MEDS ORDERED: ISOS30TA6 PO (11:11)
[2016-11-13] MEDS ORDERED: METO25 PO (11:11)
[2016-11-13] MEDS ORDERED: PANT40TA25 PO (11:12)
[2016-11-13] MEDS ORDERED: TICA90TA PO (11:12)
[2016-11-13] MEDS ORDERED: LEVO500 PO (11:13)
[2016-11-13] MEDS ORDERED: METR500 PO (11:13)
[2016-11-13 11:59] LABS: GLUCOSE,POINT OF CARE 92 MG/DL (70-110)
[2016-11-13] MEDS: METOPROLOL TARTRATE 25 MG TABLET PO SCH (12:34)
[2016-11-13 12:51] VITALS: BP 117/67
[2016-11-13] MEDS ORDERED: ASPI-1093 PO (13:52)
== END 2016-11-13 14:45 | disposition home or self-care (01) | DRG 710 ==
LOC: EMS 12:29 → ICU 15:04 → 5N 11-01 16:40 → ICU 11-05 10:22 → 5N 11-06 15:21 → 6N 11-10 18:05
PROVIDERS: ADMIT Internal Medicine; ATTEND Internal Medicine
PROC: 5A1955Z Respiratory Ventilation, Greater than 96 Consecutive Hours (ICD-10-PCS; 2016-10-18)
PROC: 0BH17EZ Insertion of Endotracheal Airway into Trachea, Via Natural or Artificial Opening (ICD-10-PCS; 2016-10-18)
PROC: 0DNW0ZZ Release Peritoneum, Open Approach (ICD-10-PCS; 2016-10-18)
PROC: 30233K1 Transfusion of Nonautologous Frozen Plasma into Peripheral Vein, Percutaneous Approach (ICD-10-PCS; 2016-10-18)
PROC: 0DB80ZZ Excision of Small Intestine, Open Approach (ICD-10-PCS; principal; 2016-10-18 15:45)
PROC: 30233N1 Transfusion of Nonautologous Red Blood Cells into Peripheral Vein, Percutaneous Approach (ICD-10-PCS; 2016-10-20)
PROC: 4A023N7 Measurement of Cardiac Sampling and Pressure, Left Heart, Percutaneous Approach (ICD-10-PCS; 2016-11-05)
PROC: B2111ZZ Fluoroscopy of Multiple Coronary Arteries using Low Osmolar Contrast (ICD-10-PCS; 2016-11-05)
PROC: B2151ZZ Fluoroscopy of Left Heart using Low Osmolar Contrast (ICD-10-PCS; 2016-11-05)
PROC: 027034Z Dilation of Coronary Artery, One Artery with Drug-eluting Intraluminal Device, Percutaneous Approach (ICD-10-PCS; 2016-11-05)
DX: A41.9 Sepsis, unspecified organism (principal); J96.01 Acute respiratory failure with hypoxia; I21.4 Non-ST elevation (NSTEMI) myocardial infarction; K63.1 Perforation of intestine (nontraumatic); F17.200 Nicotine dependence, unspecified, uncomplicated; E46 Unspecified protein-calorie malnutrition; I27.2 Other secondary pulmonary hypertension; K66.0 Peritoneal adhesions (postprocedural) (postinfection); E11.22 Type 2 diabetes mellitus with diabetic chronic kidney disease; I50.21 Acute systolic (congestive) heart failure; I44.7 Left bundle-branch block, unspecified; D75.89 Other specified diseases of blood and blood-forming organs; D64.9 Anemia, unspecified; K27.9 Peptic ulcer, site unspecified, unspecified as acute or chronic, without hemorrhage or perforation; N18.9 Chronic kidney disease, unspecified; A04.7 Enterocolitis due to Clostridium difficile; N39.0 Urinary tract infection, site not specified; J69.0 Pneumonitis due to inhalation of food and vomit; T81.4XXA Infection following a procedure, initial encounter; Y83.8 Other surgical procedures as the cause of abnormal reaction of the patient, or of later complication, without mention of misadventure at the time of the procedure; Y92.238 Other place in hospital as the place of occurrence of the external cause; B96.20 Unspecified Escherichia coli [E. coli] as the cause of diseases classified elsewhere; Z87.11 Personal history of peptic ulcer disease; Z98.890 Other specified postprocedural states; Z68.1 Body mass index [BMI] 19.9 or less, adult
CPT/HCPCS: 36569; 71250; 72192; 74150; 74177; 82270; 82271; 82805; 82962; 83605; 83735; 84100; 84132; 84134; 84155; 84443; 84478; 85007; 86850; 86900; 86901; 86920; 86927; 87070; 87081; 87086; 87205; 87324; 87449; 88304; 88307; 90471; 92526; 92610; 92920; 92928; 93005; 93306; 94002; 94003; 94660; 96361; 96365; 96366; 96368; 96375; 97110; 97116; 97163; 97530; 99291; C9113; J0131; J0330; J0461; J0610; J1170; J1630; J1644; J1940; J2250; J2270; J2370; J2405; J2543; J2704; J3010; J3370; J3430; J3475; J3480; J3490; J7030; J7040; J7050; J7060; J7070; J7120; J7131; P9016; P9017; P9046; P9047; Q9967